=== PATIENT | female | born 1950 | race Caucasian/White ===

== ENCOUNTER → 2017-11-30 07:16 | Outpatient (CLI) | payer MEDICARE, OTHER, SELFPAY ==
[2017-11-30 08:22] LABS: Alanine Aminotransferase 39 IU/L (9-52); Albumin 4.2 g/dL (3.5-5.0); Albumin Globulin Ratio 1.6 (1.0-2.8); Alkaline Phosphatase 77 U/L (38-126); Aspartate Aminotransferase 31 IU/L (14-36); BUN Creatinine Ratio 13.8 (6-22); Bilirubin Total 0.7 mg/dL (0.2-1.3); Calcium 10.1 mg/dL (8.4-10.2); Cholesterol 170 mg/dL (140-199); Estimated Glomerular Filt Rate > 60.0 mL/min (>60); Globulin 2.7 g/dL (1.7-4.1); Glucose 102 mg/dL (80-110); HDL Cholesterol 61 mg/dL (40-60); HEMOLYSIS < 15 (0-50); LDL Cholesterol Calculated 83 mg/dL (<100); Potassium 4.8 mmol/L (3.4-5.1); Sodium 142 mmol/L (137-145); Total Protein 6.9 g/dL (6.3-8.2); Triglycerides 128 mg/dL (35-150)
== END ==
PROVIDERS: PCP Family Medicine; Visit Provider Family Medicine
DX: E78.5 Hyperlipidemia, unspecified (principal)
CPT/HCPCS: 36415; 80053; 80061

== ENCOUNTER → 2018-11-29 07:57 | Outpatient (CLI) | payer MEDICARE, OTHER, SELFPAY ==
[2018-11-29 08:38] LABS: Add Manual Diff / Slide Review NO; Basophils Absolute Auto 0 /uL (0-100); Eosinophils Absolute Auto 0 /uL (0-450); Hematocrit 47.1 % (36-46); Hemoglobin 15.4 g/dL (12.0-16.0); Lymphocytes Absolute Auto 1000 /uL (1100-4500); Lymphocytes Percent Auto 25.4 % (25-40); Mean Corpuscular HGB Conc 32.7 % (30-36); Mean Corpuscular Hemoglobin 29.9 PG (26-34); Mean Corpuscular Volume 91.5 fL (80-100); Monocytes Absolute Auto 300 /uL (0-900); Monocytes Percent Auto 6.6 % (3-14); Neutrophils Absolute Auto 2800 /uL (1500-7000); Platelet Count 203 X10^3/uL (150-400); Red Blood Cell Count 5.15 X10^6/uL (4.0-5.2); Red Cell Distribution Width 12.9 % (11.6-14.8); White Blood Cell Count 4.1 X10^3/uL (4.5-11.0)
[2018-11-29 08:53] LABS: Alanine Aminotransferase 35 IU/L (9-52); Albumin 4.4 g/dL (3.5-5.0); Albumin Globulin Ratio 1.6 (1.0-2.8); Alkaline Phosphatase 66 U/L (38-126); Aspartate Aminotransferase 29 IU/L (14-36); Bilirubin Total 0.5 mg/dL (0.2-1.3); Blood Urea Nitrogen 12 mg/dL (7-17); Calcium 9.8 mg/dL (8.4-10.2); Carbon Dioxide 32 mmol/L (22-32); Chloride 101 mmol/L (98-107); Cholesterol 172 mg/dL (140-199); Estimated Glomerular Filt Rate > 60.0 mL/min (>60); Globulin 2.7 g/dL (1.7-4.1); Glucose 102 mg/dL (80-110); HDL Cholesterol 72 mg/dL (40-60); HEMOLYSIS < 15 (0-50); LDL Cholesterol Calculated 85 mg/dL (<100); Potassium 4.5 mmol/L (3.4-5.1); Sodium 139 mmol/L (137-145); Total Protein 7.1 g/dL (6.3-8.2); Triglycerides 76 mg/dL (35-150)
[2018-11-29 09:38] LABS: Lithium 0.2 mmol/L (0.6-1.2)
[2018-11-29 10:12] LABS: TSH w/ Reflex to FT4 1.45 uIU/mL (0.47-4.68)
== END ==
PROVIDERS: Family Provider Nurse Practitioner Psychiatric/Mental Health; PCP Family Medicine; Visit Provider Family Medicine
DX: E78.5 Hyperlipidemia, unspecified (principal); Z79.899 Other long term (current) drug therapy
CPT/HCPCS: 36415; 80053; 80061; 80178; 84443; 85025

== ENCOUNTER 2019-04-25 13:00 | Outpatient (RCR) | payer MEDICARE, OTHER, SELFPAY ==
--- NOTE | 2019-03-02 16:00 | PT.OPPOC ---
Current Diagnoses Other specified disorders of muscle (03/02/19) Stress incontinence (female) (male) (03/02/19) Provider Visit Care Team Role Provider Type Addie Knowles DO Attending Provider Physician Primary Care Provider Specialty: [facility] Address: [address] [place] [address], [address], [address] Email: [email or web address] Plan Of Care PT-OP-T Assessment and Plan Start: 03/02/19 13:20 Freq: Status: Active Protocol: Document 03/02/19 10:30 AMB (Rec: 03/04/19 11:21 AMB [email or web address]) Physical Therapy Assessment Rehab Potential Rehabilitation Potential Good Evaluation Complexity Number of Personal Factors/Comorbidities 1-2 Number of Body Systems Impaired 1-2 Clinical Presentation at Evaluation Stable Impairments Impairments Functional Activities Strength Goals Two Impairment strength Short Term Goal (STG) Leia will increase her pelvic floor strength to 3/5 in all planes. STG Duration 4 weeks Mcfp Goal (LTG) Leia will perform a kegel while squatting without abdominal compensation. LTG Duration 8 weeks One Impairment continence Short Term Goal (STG) Leia will cough without leaking. STG Duration 4 weeks Mcfp Goal (LTG) Leia will cough while walking without leaking. LTG Duration 8 weeks Assessment Summary Assessment Leia returns to physical therapy with continued stress urinary incontinence. She was last seen in May 2017 and just noticed a return of her symptoms a few months ago. She denies any recent change in activity or recent illness , although admits she has not kept up with her pelvic floor exercises. She will benefit from pelvic floor PT to help her strengthen her pelvic floor with specific focus on ways to strengthen functionally so that she is able to stay continent in the shelter. Physical Therapy Plan Frequency and Duration Frequency of Treatment 1x/Week Duration of Treatment 8 weeks Plan of Care Start Date 03/02/19 Plan of Care End Date 04/27/19 Therapeutic Interventions Therapeutic Interventions Home Exercise Program Manual Therapy Neuromuscular Re-education Self-Care/Home Management Therapeutic Activities Therapeutic Exercises Modalities Biofeedback Electric Stimulation Next Visit Focus/Plan Next Note Type Treatment Note Next Visit Plan Begin with sEMG, but quickly move into more functional strengthening that pt can be consistent with. Plan of Care Dates Plan of Care Start Date 03/02/19 Plan of Care End Date 04/27/19 Please Sign and Return: I have reviewed this Plan of Care and certify that the skilled therapy services above are required to meet the patient?s needs. Physician Signature Date Printed Name and Credentials Clinical Instructor Signature Printed Name and Credentials
--- NOTE | 2019-03-02 16:00 | PT.OIE ---
Current Diagnoses Other specified disorders of muscle (03/02/19) Stress incontinence (female) (male) (03/02/19) Past Medical History (Last Updated 12/10/17 @ 20:13 by Addie Knowles DO) Birdsong use (Chronic) Cholelithiasis and cholecystitis without obstruction (Resolved) Genital herpes simplex (Chronic 08/15/13) Hyperlipidemia (Chronic 08/15/13) Gastroesophageal reflux disease (Chronic 01/30/15) Bipolar affective disorder (Chronic 01/30/15) Anemia (Chronic ~1958) Anxiety (Chronic ~1962) Atrophic vaginitis (Chronic) Bipolar 1 disorder (Chronic ~1962) Chlamydia (Chronic ~1974) Depression (Chronic ~1962) HSV (herpes simplex virus) infection (Chronic ~1975) Hayfever (Chronic ~1971) Helicobacter pylori (H. pylori) (Chronic) Hyperlipidemia (Chronic) Hypertension (Chronic ~1999) Osteoarthritis (Chronic ~2013) Stress incontinence (Chronic) Vision problem (Chronic) Abnormal Pap smear of cervix (Resolved) Cataract (Resolved ~2012) Chickenpox (Resolved ~1958) Measles (Resolved ~1955) Mumps (Resolved ~1956) PMS (premenstrual syndrome) (Resolved) Recurrent sinusitis (Resolved ~1988) Suicide attempt (Inactive 01/09/15) Past Surgical History (Last Updated 12/07/17 @ 12:21 by Meka Bal) History of blepharoplasty (Resolved ~2016) History of meniscal tear (Resolved ~1989) Anesthesia (Inactive) History of bilateral salpingo-oophorectomy (BSO) History of cataract removal with insertion of prosthetic lens History of elective History of elective History of lumpectomy Status post arthroscopy Status post breast biopsy Status post endometrial ablation Status post laparoscopic cholecystectomy (07/14/17) Provider Visit Care Team Role Provider Type Addie Knowles DO Attending Provider Physician Primary Care Provider Specialty: [facility] Address: [address] [place] [address], [address], [address] Email: [email or web address] Physical Therapy Initial Evaluation PT-OP-A Visit Information Start: 03/02/19 13:20 Freq: Status: Active Protocol: Document 03/02/19 10:30 AMB (Rec: 03/04/19 11:16 AMB [email or web address]) Out-Patient Physical Therapy Visit Information Visit Information Visit Type Initial Evaluation Visit Start Time 10:30 Visit Stop Time 11:14 Total Visit Minutes 44 Visit Number 1 PT-OP-B Current Condition Start: 03/02/19 13:20 Freq: Status: Active Protocol: Document 03/02/19 10:30 AMB (Rec: 03/04/19 11:16 AMB [email or web address]) Current Condition History of Current Condition Onset Date chronic Current Complaints urinary leaking with sneeze cough History of Current Condition Leia had one live with vaginal delivery and episiotomy. She denies leaking around that time, but started around 2004 around menopause. Sneezing, coughing , and walking make the leaking worse. Denies urgency. Prior Treatments and Tests Leia has been seen twice before for pelvic floor PT but admits she has not kept up with her exercises Treatment Goals Patient/Caregiver Goals Stop leaking Personal Factors Other Personal Factors That May Effect bipolar, prior knee Therapy/Recovery replacements. PT-OP-C Subjective Start: 03/02/19 13:20 Freq: Status: Active Protocol: Document 03/02/19 10:30 AMB (Rec: 03/04/19 11:16 AMB [email or web address]) Patient Questionnaires Pelvic Pain and Urgency/Frequency Patient Symptom Scale Pelvic Pain Score 4 PT-OP-I Pelvic Floor Start: 03/02/19 13:20 Freq: Status: Active Protocol: Document 03/02/19 10:30 AMB (Rec: 03/04/19 11:16 AMB [email or web address]) Pelvic Floor Assessment Urine Pelvic Floor Surgery No Leakage Size Medium Leakage Cause Cough Sneeze Voiding Frequency 2-3 hours Nocturia 1 Prolapse Cystocele Grade 1 SEMG (uV) Baseline 2 Quick Contraction 12 10 Second Contraction 8 Recruitment Pattern Fair Relaxation Fair Stability of Hold Fair SEMG Stability of Rest Good Contraction Ability Voluntary Contraction Weak Voluntary Relaxation Moderate Manual Muscle Testing Left 2 Manual Muscle Testing Right 2 Manual Muscle Testing Anterior 2 Manual Muscle Testing Posterior 3 Muscle Endurance (Seconds) 4 Number of Quick Contractions In 10 4 Seconds PT-OP-T Assessment and Plan Start: 03/02/19 13:20 Freq: Status: Active Protocol: Document 03/02/19 10:30 AMB (Rec: 03/04/19 11:21 AMB [email or web address]) Physical Therapy Assessment Rehab Potential Rehabilitation Potential Good Evaluation Complexity Number of Personal Factors/Comorbidities 1-2 Number of Body Systems Impaired 1-2 Clinical Presentation at Evaluation Stable Impairments Impairments Functional Activities Strength Goals Two Impairment strength Short Term Goal (STG) Leia will increase her pelvic floor strength to 3/5 in all planes. STG Duration 4 weeks Residential Goal (LTG) Leia will perform a kegel while squatting without abdominal compensation. LTG Duration 8 weeks One Impairment continence Short Term Goal (STG) Leia will cough without leaking. STG Duration 4 weeks [employer] Goal (LTG) Leia will cough while walking without leaking. LTG Duration 8 weeks Assessment Summary Assessment Leia returns to physical therapy with continued stress urinary incontinence. She was last seen in May 2017 and just noticed a return of her symptoms a few months ago. She denies any recent change in activity or recent illness , although admits she has not kept up with her pelvic floor exercises. She will benefit from pelvic floor PT to help her strengthen her pelvic floor with specific focus on ways to strengthen functionally so that she is able to stay continent in the senior care. Physical Therapy Plan Frequency and Duration Frequency of Treatment 1x/Week Duration of Treatment 8 weeks Plan of Care Start Date 03/02/19 Plan of Care End Date 04/27/19 Therapeutic Interventions Therapeutic Interventions Home Exercise Program Manual Therapy Neuromuscular Re-education Self-Care/Home Management Therapeutic Activities Therapeutic Exercises Modalities Biofeedback Electric Stimulation Next Visit Focus/Plan Next Note Type Treatment Note Next Visit Plan Begin with sEMG, but quickly move into more functional strengthening that pt can be consistent with.
--- NOTE | 2019-03-16 08:30 | PT.OTN ---
Current Diagnoses Other specified disorders of muscle (03/16/19) Stress incontinence (female) (male) (03/16/19) Physical Therapy Treatment Note PT-OP-A Visit Information Start: 03/02/19 13:20 Freq: Status: Active Protocol: Document 03/16/19 07:30 AMB (Rec: 03/19/19 06:59 AMB [email or web address]) Out-Patient Physical Therapy Visit Information Visit Information Visit Type Treatment Note Visit Start Time 07:30 Visit Stop Time 08:15 Total Visit Minutes 43 Visit Number 2 PT-OP-B Current Condition Start: 03/02/19 13:20 Freq: Status: Active Protocol: Document 03/02/19 10:30 AMB (Rec: 03/04/19 11:16 AMB [email or web address]) Current Condition History of Current Condition Onset Date chronic Current Complaints urinary leaking with sneeze cough History of Current Condition Leia had one live with vaginal delivery and episiotomy. She denies leaking around that time, but started around 2004 around menopause. Sneezing, coughing , and walking make the leaking worse. Denies urgency. Prior Treatments and Tests Leia has been seen twice before for pelvic floor PT but admits she has not kept up with her exercises Treatment Goals Patient/Caregiver Goals Stop leaking Personal Factors Other Personal Factors That May Effect bipolar, prior knee Therapy/Recovery replacements. PT-OP-C Subjective Start: 03/02/19 13:20 Freq: Status: Active Protocol: Document 03/16/19 07:30 AMB (Rec: 03/19/19 06:59 AMB [email or web address]) OP-PT Subjective Patient Comments Patient Comments Leia states she is very anxious today. It has been two weeks since her last appointment, and the first week went well, but the second week she was having lots of leaks because she felt she forgot how to use the muscles. PT-OP-I Pelvic Floor Start: 03/02/19 13:20 Freq: Status: Active Protocol: Document 03/02/19 10:30 AMB (Rec: 03/04/19 11:16 AMB [email or web address]) Pelvic Floor Assessment Urine Pelvic Floor Surgery No Leakage Size Medium Leakage Cause Cough,Sneeze Voiding Frequency 2-3 hours Nocturia 1 Prolapse Cystocele Grade 1 SEMG (uV) Baseline 2 Quick Contraction 12 10 Second Contraction 8 Recruitment Pattern Fair Relaxation Fair Stability of Hold Fair SEMG Stability of Rest Good Contraction Ability Voluntary Contraction Weak Voluntary Relaxation Moderate Manual Muscle Testing Left 2 Manual Muscle Testing Right 2 Manual Muscle Testing Anterior 2 Manual Muscle Testing Posterior 3 Muscle Endurance (Seconds) 4 Number of Quick Contractions In 10 4 Seconds PT-OP-Q Treatments Start: 03/02/19 13:20 Freq: Status: Active Protocol: Document 03/16/19 07:30 AMB (Rec: 03/19/19 06:59 AMB [email or web address]) Therapeutic Exercises Supine Exercises 1 Supine Exercise Name roll in Reps/Minutes 2x10 Neuro Re-Education Treatment Other Activities 1 Details sEMG Comments hooklying quick flicks and long holds, with work on breathing PT-OP-T Assessment and Plan Start: 03/02/19 13:20 Freq: Status: Active Protocol: Document 03/16/19 07:30 AMB (Rec: 03/19/19 06:59 AMB [email or web address]) Physical Therapy Assessment Assessment Summary Assessment Leia feels that she forgot how to do a Kegel, but did well with sEMG today. As pt was very anxious, did not progress exercises much, but reassured her she is doing them correctly. Physical Therapy Plan Next Visit Focus/Plan Next Note Type Treatment Note Next Visit Plan Begin with sEMG, but quickly move into more functional strengthening that pt can be consistent with.
--- NOTE | 2019-04-11 12:00 | PT.OTN ---
Current Diagnoses Other specified disorders of muscle (04/11/19) Stress incontinence (female) (male) (04/11/19) Physical Therapy Treatment Note PT-OP-A Visit Information Start: 03/02/19 13:20 Freq: Status: Active Protocol: Document 04/11/19 13:00 AMB (Rec: 04/11/19 13:46 AMB [id number]) Out-Patient Physical Therapy Visit Information Visit Information Visit Type Treatment Note Visit Start Time 13:00 Visit Stop Time 13:44 Total Visit Minutes 44 Visit Number 3 PT-OP-B Current Condition Start: 03/02/19 13:20 Freq: Status: Active Protocol: Document 03/02/19 10:30 AMB (Rec: 03/04/19 11:16 AMB [email or web address]) Current Condition History of Current Condition Onset Date chronic Current Complaints urinary leaking with sneeze cough History of Current Condition Leia had one live with vaginal delivery and episiotomy. She denies leaking around that time, but started around 2004 around menopause. Sneezing, coughing , and walking make the leaking worse. Denies urgency. Prior Treatments and Tests Leia has been seen twice before for pelvic floor PT but admits she has not kept up with her exercises Treatment Goals Patient/Caregiver Goals Stop leaking Personal Factors Other Personal Factors That May Effect bipolar, prior knee Therapy/Recovery replacements. PT-OP-C Subjective Start: 03/02/19 13:20 Freq: Status: Active Protocol: Document 04/11/19 13:00 AMB (Rec: 04/11/19 13:46 AMB [id number]) OP-PT Subjective Patient Comments Patient Comments Leia sneezed 5 times yesterday while walking, she went down to her mid thigh down her pants when this happened, she has not been good with her exercises as she keeps forgetting how to do them. PT-OP-I Pelvic Floor Start: 03/02/19 13:20 Freq: Status: Active Protocol: Document 03/02/19 10:30 AMB (Rec: 03/04/19 11:16 AMB [email or web address]) Pelvic Floor Assessment Urine Pelvic Floor Surgery No Leakage Size Medium Leakage Cause Cough,Sneeze Voiding Frequency 2-3 hours Nocturia 1 Prolapse Cystocele Grade 1 SEMG (uV) Baseline 2 Quick Contraction 12 10 Second Contraction 8 Recruitment Pattern Fair Relaxation Fair Stability of Hold Fair SEMG Stability of Rest Good Contraction Ability Voluntary Contraction Weak Voluntary Relaxation Moderate Manual Muscle Testing Left 2 Manual Muscle Testing Right 2 Manual Muscle Testing Anterior 2 Manual Muscle Testing Posterior 3 Muscle Endurance (Seconds) 4 Number of Quick Contractions In 10 4 Seconds PT-OP-Q Treatments Start: 03/02/19 13:20 Freq: Status: Active Protocol: Document 04/11/19 13:00 AMB (Rec: 04/12/19 07:56 AMB [email or web address]) Therapeutic Exercises Supine Exercises 1 Supine Exercise Name roll in Reps/Minutes 2x10 Neuro Re-Education Treatment Other Activities 1 Details sEMG Comments hooklying quick flicks and long holds, with work on breathing PT-OP-T Assessment and Plan Start: 03/02/19 13:20 Freq: Status: Active Protocol: Document 04/11/19 13:00 AMB (Rec: 04/12/19 07:56 AMB [email or web address]) Physical Therapy Assessment Assessment Summary Assessment Leia continues to need extensive cueing for correct pelvic floor contraction, but then can perform well. Will benefit from more consistent appointments so she can get in a good routine. Physical Therapy Plan Next Visit Focus/Plan Next Note Type Treatment Note Next Visit Plan Begin with sEMG, but quickly move into more functional strengthening that pt can be consistent with.
--- NOTE | 2019-04-18 16:01 | PT.OTN ---
Current Diagnoses Other specified disorders of muscle (04/18/19) Stress incontinence (female) (male) (04/18/19) Physical Therapy Treatment Note PT-OP-A Visit Information Start: 03/02/19 13:20 Freq: Status: Active Protocol: Document 04/18/19 12:59 AMB (Rec: 04/18/19 13:12 AMB [id number]) Out-Patient Physical Therapy Visit Information Visit Information Visit Type Treatment Note Visit Start Time 13:00 Visit Stop Time 13:44 Total Visit Minutes 44 Visit Number 4 PT-OP-B Current Condition Start: 03/02/19 13:20 Freq: Status: Active Protocol: Document 03/02/19 10:30 AMB (Rec: 03/04/19 11:16 AMB [email or web address]) Current Condition History of Current Condition Onset Date chronic Current Complaints urinary leaking with sneeze cough History of Current Condition Leia had one live with vaginal delivery and episiotomy. She denies leaking around that time, but started around 2004 around menopause. Sneezing, coughing , and walking make the leaking worse. Denies urgency. Prior Treatments and Tests Leia has been seen twice before for pelvic floor PT but admits she has not kept up with her exercises Treatment Goals Patient/Caregiver Goals Stop leaking Personal Factors Other Personal Factors That May Effect bipolar, prior knee Therapy/Recovery replacements. PT-OP-C Subjective Start: 03/02/19 13:20 Freq: Status: Active Protocol: Document 04/18/19 12:59 AMB (Rec: 04/18/19 13:45 AMB [id number]) OP-PT Subjective Patient Comments Patient Comments Pt is frustrated she is having difficulty doing the exercises. PT-OP-I Pelvic Floor Start: 03/02/19 13:20 Freq: Status: Active Protocol: Document 03/02/19 10:30 AMB (Rec: 03/04/19 11:16 AMB [email or web address]) Pelvic Floor Assessment Urine Pelvic Floor Surgery No Leakage Size Medium Leakage Cause Cough,Sneeze Voiding Frequency 2-3 hours Nocturia 1 Prolapse Cystocele Grade 1 SEMG (uV) Baseline 2 Quick Contraction 12 10 Second Contraction 8 Recruitment Pattern Fair Relaxation Fair Stability of Hold Fair SEMG Stability of Rest Good Contraction Ability Voluntary Contraction Weak Voluntary Relaxation Moderate Manual Muscle Testing Left 2 Manual Muscle Testing Right 2 Manual Muscle Testing Anterior 2 Manual Muscle Testing Posterior 3 Muscle Endurance (Seconds) 4 Number of Quick Contractions In 10 4 Seconds PT-OP-Q Treatments Start: 03/02/19 13:20 Freq: Status: Active Protocol: Document 04/18/19 15:59 AMB (Rec: 04/18/19 16:01 AMB [email or web address]) Therapeutic Exercises Sitting Exercises 1 Sitting Exercise Name roll in/roll out in seated Comments challenging Standing Exercises 1 Standing Exercise Name quick flicks in standing Comments better, difficulty wiht 10 sec holds Neuro Re-Education Treatment Other Activities 1 Details sEMG Comments hooklying quick flicks and long holds, with work on breathing PT-OP-T Assessment and Plan Start: 03/02/19 13:20 Freq: Status: Active Protocol: Document 04/18/19 12:59 AMB (Rec: 04/18/19 13:45 AMB [id number]) Physical Therapy Assessment Assessment Summary Assessment Mag needed extensive encouragement to continue on with exercises. Encouraged her in seated and standing exercises so that she can be more successful and not fall asleep doing her exercises. Physical Therapy Plan Next Visit Focus/Plan Next Note Type Treatment Note Next Visit Plan Begin with sEMG, but quickly move into more functional strengthening that pt can be consistent with.
--- NOTE | 2019-04-25 15:41 | PT.OTN ---
Current Diagnoses Other specified disorders of muscle (04/25/19) Stress incontinence (female) (male) (04/25/19) Physical Therapy Treatment Note PT-OP-A Visit Information Start: 03/02/19 13:20 Freq: Status: Active Protocol: Document 04/25/19 13:00 AMB (Rec: 04/25/19 13:45 AMB [id number]) Out-Patient Physical Therapy Visit Information Visit Information Visit Type Treatment Note Visit Start Time 13:00 Visit Stop Time 13:44 Total Visit Minutes 44 Visit Number 5 PT-OP-B Current Condition Start: 03/02/19 13:20 Freq: Status: Active Protocol: Document 03/02/19 10:30 AMB (Rec: 03/04/19 11:16 AMB [email or web address]) Current Condition History of Current Condition Onset Date chronic Current Complaints urinary leaking with sneeze cough History of Current Condition Leia had one live with vaginal delivery and episiotomy. She denies leaking around that time, but started around 2004 around menopause. Sneezing, coughing , and walking make the leaking worse. Denies urgency. Prior Treatments and Tests Leia has been seen twice before for pelvic floor PT but admits she has not kept up with her exercises Treatment Goals Patient/Caregiver Goals Stop leaking Personal Factors Other Personal Factors That May Effect bipolar, prior knee Therapy/Recovery replacements. PT-OP-C Subjective Start: 03/02/19 13:20 Freq: Status: Active Protocol: Document 04/25/19 13:00 AMB (Rec: 04/25/19 13:45 AMB [id number]) OP-PT Subjective Patient Comments Patient Comments Pt is frustrated in that she did not do her exercises for the past 4 days. She has not been leaking, but also has not been sneezing. PT-OP-I Pelvic Floor Start: 03/02/19 13:20 Freq: Status: Active Protocol: Document 03/02/19 10:30 AMB (Rec: 03/04/19 11:16 AMB [email or web address]) Pelvic Floor Assessment Urine Pelvic Floor Surgery No Leakage Size Medium Leakage Cause Cough,Sneeze Voiding Frequency 2-3 hours Nocturia 1 Prolapse Cystocele Grade 1 SEMG (uV) Baseline 2 Quick Contraction 12 10 Second Contraction 8 Recruitment Pattern Fair Relaxation Fair Stability of Hold Fair SEMG Stability of Rest Good Contraction Ability Voluntary Contraction Weak Voluntary Relaxation Moderate Manual Muscle Testing Left 2 Manual Muscle Testing Right 2 Manual Muscle Testing Anterior 2 Manual Muscle Testing Posterior 3 Muscle Endurance (Seconds) 4 Number of Quick Contractions In 10 4 Seconds PT-OP-Q Treatments Start: 03/02/19 13:20 Freq: Status: Active Protocol: Document 04/25/19 13:00 AMB (Rec: 04/25/19 15:34 AMB [email or web address]) Therapeutic Exercises Sitting Exercises 1 Sitting Exercise Name roll in/roll out in seated Comments challenging Standing Exercises 2 Standing Exercise Name sit to stand Comments with PF contract 1 Standing Exercise Name quick flicks in standing Comments better, difficulty wiht 10 sec holds PT-OP-T Assessment and Plan Start: 03/02/19 13:20 Freq: Status: Active Protocol: Document 04/25/19 13:00 AMB (Rec: 04/25/19 13:33 AMB [id number]) Physical Therapy Assessment Goals Two Impairment strength Short Term Goal (STG) Leia will increase her pelvic floor strength to 3/5 in all planes. STG Duration NOT MET Skilled Nursing Goal (LTG) Leia will perform a kegel while squatting without abdominal compensation. LTG Duration NOT MET One Impairment continence Short Term Goal (STG) Leia will cough without leaking. MET- but still leaks with sneezing Skilled Nursing Goal (LTG) Leia will cough while walking without leaking. LTG Duration NOT MET Assessment Summary Assessment Leia is having a hard time being kind to herself when it comes to her exercises. She did her exercises 3x in the last week, but is upset with herself for not doing them the other 4 days. She feels she is better able to do her exercises now, but is worried that if she sneezed she would still leak. Discussed follow up with MD to discuss alternate options: medication, pessary, surgery. . . Given Leia's history of having a hard time with being consistent with her exercises. She wanted to discharge today, even though she has not met her goals. She was given very specific instructions of when to do her exercises, and hopefully she will be able to be consistent with that. Physical Therapy Plan Discharge Physical Therapy Discharge Reasons Patient Request
== END 2019-04-25 14:11 | disposition home or self-care (01) ==
LOC: PHYS 13:00
PROVIDERS: PCP Family Medicine; Visit Provider Family Medicine
DX: M62.89 Other specified disorders of muscle (principal); N39.3 Stress incontinence (female) (male)
CPT/HCPCS: 97110; 97112; 97161

== ENCOUNTER → 2019-10-27 08:56 | Outpatient (CLI) | payer MEDICARE, OTHER, SELFPAY | PROVIDERS: PCP Family Medicine; Referring Provider Family Medicine; Visit Provider Family Medicine | DX: R19.7 Diarrhea, unspecified (principal) | CPT/HCPCS: 87177 ==

== ENCOUNTER → 2019-10-30 12:45 | Outpatient (CLI) | payer MEDICARE, OTHER, SELFPAY ==
[2019-10-30 13:49] LABS: Add Manual Diff / Slide Review NO; Basophils Absolute Auto 0 /uL (0-100); Basophils Percent Auto 0.1 % (0-2); Eosinophils Absolute Auto 0 /uL (0-450); Eosinophils Percent Auto 0.1 % (2-4); Hematocrit 43.3 % (36-46); Hemoglobin 14.4 g/dL (12.0-16.0); Lymphocytes Absolute Auto 1300 /uL (1100-4500); Lymphocytes Percent Auto 27.2 % (25-40); Mean Corpuscular HGB Conc 33.2 % (30-36); Mean Corpuscular Hemoglobin 31.1 PG (26-34); Mean Corpuscular Volume 93.8 fL (80-100); Monocytes Absolute Auto 300 /uL (0-900); Monocytes Percent Auto 6.7 % (3-14); Neutrophils Absolute Auto 3300 /uL (1500-7000); Neutrophils Percent Auto 65.9 % (50-75); Platelet Count 186 X10^3/uL (150-400); Red Blood Cell Count 4.62 X10^6/uL (4.0-5.2); Red Cell Distribution Width 12.7 % (11.6-14.8); White Blood Cell Count 4.9 X10^3/uL (4.5-11.0)
[2019-10-30 14:05] LABS: Alanine Aminotransferase 59 IU/L (<35); Albumin 4.1 g/dL (3.5-5.0); Albumin Globulin Ratio 1.6 (1.0-2.8); Alkaline Phosphatase 68 U/L (38-126); Aspartate Aminotransferase 59 IU/L (14-36); BUN Creatinine Ratio 16.2 (6-22); Bilirubin Total 0.6 mg/dL (0.2-1.3); Blood Urea Nitrogen 11 mg/dL (7-17); C-Reactive Protein Quant < 0.5 mg/dL (<1.0); Calcium 9.1 mg/dL (8.4-10.2); Carbon Dioxide 30 mmol/L (22-32); Chloride 100 mmol/L (98-107); Estimated Glomerular Filt Rate > 60.0 mL/min (>60); Globulin 2.5 g/dL (1.7-4.1); Glucose 199 mg/dL (80-110); HEMOLYSIS < 15 (0-50); Potassium 4.1 mmol/L (3.4-5.1); Sodium 137 mmol/L (137-145); Total Protein 6.6 g/dL (6.3-8.2)
== END ==
PROVIDERS: PCP Family Medicine; Referring Provider Family Medicine; Visit Provider Family Medicine
DX: K52.9 Noninfective gastroenteritis and colitis, unspecified (principal)
CPT/HCPCS: 80053; 85025; 86140

== ENCOUNTER → 2019-11-13 07:58 | Outpatient (CLI) | payer MEDICARE, OTHER, SELFPAY ==
[2019-11-13 08:35] LABS: Alanine Aminotransferase 31 IU/L (<35); Albumin 4.3 g/dL (3.5-5.0); Albumin Globulin Ratio 1.5 (1.0-2.8); Alkaline Phosphatase 69 U/L (38-126); Aspartate Aminotransferase 38 IU/L (14-36); Bilirubin Total 0.4 mg/dL (0.2-1.3); Blood Urea Nitrogen 6 mg/dL (7-17); Calcium 9.7 mg/dL (8.4-10.2); Carbon Dioxide 31 mmol/L (22-32); Chloride 103 mmol/L (98-107); Estimated Glomerular Filt Rate > 60.0 mL/min (>60); Globulin 2.9 g/dL (1.7-4.1); Glucose 102 mg/dL (80-110); HEMOLYSIS < 15 (0-50); Potassium 4.5 mmol/L (3.4-5.1); Sodium 138 mmol/L (137-145); Total Protein 7.2 g/dL (6.3-8.2)
[2019-11-13 08:50] LABS: Lithium 0.3 mmol/L (0.6-1.2)
[2019-11-14 07:17] LABS: Insulin Level Total 4.8 uIU/mL (2.6-24.9)
== END ==
PROVIDERS: PCP Family Medicine; Referring Provider Family Medicine; Visit Provider Family Medicine
DX: E78.5 Hyperlipidemia, unspecified (principal); R73.09 Other abnormal glucose; R79.89 Other specified abnormal findings of blood chemistry; Z79.899 Other long term (current) drug therapy
CPT/HCPCS: 36415; 80053; 80178; 83036; 83525; 84443

== ENCOUNTER → 2020-06-04 07:57 | Outpatient (CLI) | payer MEDICARE, OTHER, SELFPAY ==
[2020-06-04 09:08] LABS: Lithium 0.2 mmol/L (0.6-1.2)
[2020-06-04 09:10] LABS: Alanine Aminotransferase 54 IU/L (<35); Albumin 4.3 g/dL (3.5-5.0); Albumin Globulin Ratio 1.7 (1.0-2.8); Alkaline Phosphatase 93 U/L (38-126); Aspartate Aminotransferase 41 IU/L (14-36); BUN Creatinine Ratio 8.4 (6-22); Bilirubin Total 0.6 mg/dL (0.2-1.3); Blood Urea Nitrogen 7 mg/dL (7-17); Calcium 9.6 mg/dL (8.4-10.2); Carbon Dioxide 30 mmol/L (22-32); Chloride 103 mmol/L (98-107); Cholesterol 158 mg/dL (140-199); Estimated Glomerular Filt Rate > 60.0 mL/min (>60); Globulin 2.6 g/dL (1.7-4.1); Glucose 111 mg/dL (80-110); HDL Cholesterol 71 mg/dL (40-60); HEMOLYSIS < 15 (0-50); LDL Cholesterol Calculated 69 mg/dL (<100); Potassium 4.9 mmol/L (3.4-5.1); Sodium 138 mmol/L (137-145); Total Protein 6.9 g/dL (6.3-8.2); Triglycerides 91 mg/dL (35-150)
== END ==
PROVIDERS: PCP Family Medicine; Referring Provider Family Medicine; Visit Provider Family Medicine
DX: E78.5 Hyperlipidemia, unspecified (principal); R73.9 Hyperglycemia, unspecified; R79.89 Other specified abnormal findings of blood chemistry; Z79.899 Other long term (current) drug therapy
CPT/HCPCS: 36415; 80053; 80061; 80178

== ENCOUNTER 2020-11-12 10:28 | Emergency (ER) | payer MEDICARE, OTHER, SELFPAY ==
[2020-11-12 10:35] VITALS: BP 167/74; PULSE 48; PULSE 49; RESP 13; TEMP 36.6; O2SAT 99; BMI 25.0
--- NOTE | 2020-11-12 10:49 | ED.NEUROSD ---
HPI - Neuro Symptoms/Deficit General Chief Complaint: Neuro Symptoms/Deficit Stated Complaint: weakness, fell post-colonoscopy 11/06/20 Time Seen by Provider: 11/12/20 10:39 Source: patient Mode of arrival: Ambulatory Limitations: no limitations History of Present Illness HPI Narrative: Patient is a 70-year-old female who arrives here to the emergency department by private vehicle for evaluation. She states that just prior to arrival she was at the local pool for a water aerobics class when she stated that she was advised to come by ?everyone in the class she states that she has a little unsure as to why she is here. She thinks that is because 1 week ago prior to a colonoscopy she fell at home and sustained some bruising to the back her legs. She stated that the individuals in her class thought that she had a come to have those evaluated. She states that she has an underlying balance issues and was somewhat more unsteady today and because of the bruising is why she was here. She later stated that she felt bad about being here him when I asked her why she stated ?because I have a hangover ?she stated that last evening she did drink alcohol. Her last drink was approximately 1900 hours. She states that she woke up this morning feeling very hung over which made her underlying balance issues worse. She states that when she was at the pool she was very unsteady on her feet and because of the bruising which was why everyone thought that she had a come in to be evaluated. On Anticoagulants: No Related Data Home Medications Medication Instructions Recorded Confirmed MULTIVITAMIN (Multiple Vitamins 1 tab PO Q DAY #0 03/03/12 07/28/20 Daily) [calcium/magnesium] 500 mg OR QDAY #0 05/18/17 07/28/20 lamotrigine 200 mg PO QDAY #0 07/14/17 07/28/20 memantine 10 mg tablet 10 mg PO BID 05/28/20 07/28/20 fluoxetine 10 mg capsule 30 mg PO DAILY cap 07/28/20 07/28/20 lithium carbonate 300 mg 300 mg PO DAILY 07/28/20 07/28/20 tablet,extended release olanzapine 10 mg tablet 10 mg PO DAILY 07/28/20 07/28/20 propranolol 10 mg tablet 10 mg PO TID 07/28/20 07/28/20 Previous Rx's Medication Instructions Recorded atorvastatin 10 mg tablet See Rx Instructions .ROUTE 07/27/20 .COMPLEX #90 tab Allergies Allergy/AdvReac Type Severity Reaction Status Date / Time morphine [MORPHINE] Allergy Severe Itch Verified 11/12/20 10:42 venlafaxine [VENLAFAXINE] Allergy Severe Upset GI Verified 11/12/20 10:42 [place] Allergy Unknown Rash Uncoded 07/28/20 09:31 Review of Systems Constitutional Constitutional: Reports fatigue, Denies fever(s) and Denies headache(s) Eyes Eyes: Denies change in vision ENT Ears, Nose, Mouth, and Throat: Denies dizziness, Denies headache(s) and Reports disequilibrium Cardiovascular Cardiovascular: Denies chest pain, Denies syncope and Denies dyspnea Respiratory Respiratory: Denies cough and Denies dyspnea Gastrointestinal Gastrointestinal: Denies abdominal pain, Denies nausea and Denies vomiting Genitourinary Genitourinary: Denies dysuria Genitourinary: Denies dysuria Musculoskeletal Musculoskeletal: Denies myalgias Integumentary/Breasts Comments: Lower extremity bruising Neurologic Neurologic: Denies dizziness, Denies syncope, Denies headache(s) and Reports disequilibrium Psychiatric Psychiatric: Reports depression (But this is not new) Comments: Bipolar disorder Endocrine Endocrine: Reports fatigue Hematologic/Lymphatic On Anticoagulants: No Allergic/Immunologic Allergic/Immunologic: Denies urticaria Patient History Medical History Abnormal Pap smear of cervix 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 pylori) HSV (herpes simplex virus) infection (~1975) Hyperlipidemia (08/15/13) Hyperlipidemia Hypertension (~1999) [place] use Measles (~1955) Mumps (~1956) Osteoarthritis (~2013) PMS (premenstrual syndrome) Recurrent sinusitis (~1988) Stress incontinence Suicide attempt (01/09/15) Vision problem Surgical History (Updated 12/07/17 @ 12:21 by Meka Bal) Anesthesia History of bilateral salpingo-oophorectomy (BSO) History of blepharoplasty (~2016) History of cataract removal with insertion of prosthetic lens History of elective History of elective History of lumpectomy History of meniscal tear (~1989) Status post arthroscopy Status post breast biopsy Status post endometrial ablation Status post laparoscopic cholecystectomy (07/14/17) Family History (Updated 09/07/17 @ 00:00 by Addie Knowles DO) Father Hypertension Hyperlipidemia Myocardial infarct Heart disease Mother High cholesterol Social History Smoking Status: Former smoker Smoking Status: Former smoker Substance Use Type: does not use Exam Initial Vital Signs Initial Vital Signs: Vital Signs Temperature 97.8 F 11/12/20 10:35 Pulse Rate 48 L 11/12/20 10:35 Respiratory Rate 13 11/12/20 10:35 Blood Pressure 167/74 H 11/12/20 10:35 Pulse Oximetry 99 11/12/20 10:35 Const General: cooperative, comfortable, well developed and well groomed Limitations: mental status not altered HENMT Head: normal to inspection and normocephalic Eyes General: appearance normal, both eyes and all related structures Pupils: PERRL EOM: EOM intact bilaterally Resp Effort & Inspection: normal respiratory effort Auscultation: clear to auscultation bilaterally Cardio Rate: bradycardic Rhythm: regular rhythm GI Inspection: non-distended Palpation: soft and No firm Skin Lesions: no lesions Neuro General: patient alert, patient awake and patient oriented x3 Cognition: normal cognition Speech: speech normal Extrem General: normal to inspection, capillary refill normal and No edema Psych Appearance: grossly normal and well kempt Scores GCS [place] coma scale eye opening: Spontaneous [place] coma scale verbal response: Orientated [place] coma scale motor response: Obey commands Britton coma scale total score: 15 NIH Stroke Scale Level of Conciousness: Alert, keenly responsive Ask month/age: Answers both questions correctly. Open/close eyes, close hand: Performs both tasks correctly Best gaze horizontal: Normal Visual malik: No visual loss Facial palsy: Normal symetrical movement Left arm drift: No drift for full 10 sec Right arm drift: No drift for full 10 sec Left leg drift: No drift for full 5 sec Right leg drift: No drift for full 5 sec Limb ataxia: Absent Sensory on face/arms/legs: Normal, no sensory loss Best language: No aphasia, normal Dysarthria: Normal Extinction or inattention: No abnormality Total NIH Stroke scale score: 0 Course Vital Signs Vital signs: Vital Signs - 8 hr 11/12/20 10:35 11/12/20 11:00 11/12/20 11:30 Temperature 97.8 F Pulse Rate 49 L 44 L 47 L Respiratory Rate 13 17 21 Blood Pressure 167/74 H Pulse Oximetry 99 100 99 [facility] - Neuro Symptoms/Deficit Lab Data Attestation: I reviewed the patient's lab results. [facility] Narrative Medical decision making narrative: Patient is alert oriented x3, GCS of 15, NIH score of 0, in my opinion has the capacity to make decisions. During my initial evaluation patient stated that she felt very bad. When I asked her why she felt this way she stated that it was because all of the issues this morning related to her being hung over. She stated that she did drink last evening and this morning her baseline unsteadiness was made a little worse because of the way that she was feeling. She has no focal neuro deficits. She stated that she did not want any IVs. She did tolerate oral intake. She ambulated around the emergency department without any problems. Patient states she would like to go home. I do feel that we can hold on further workup. She was given return precautions and follow-up instructions. She expressed understanding and agreement. Discharge Plan Departure Patient Disposition: Home Clinical Impression: Hangover Instructions: Alcohol Use Disorder Activity Restrictions/Additional Instructions: I recommend that you contact your primary provider for a follow-up. Continue all of your medications as directed. Return to the emergency department for any new or worsening symptoms Prescriptions: No Action MULTIVITAMIN (Multiple Vitamins Daily) 1 tab PO Q DAY Qty: 0 RF: 0 [calcium/magnesium] 500 mg OR QDAY Qty: 0 RF: 0 lamotrigine 200 MG tablet 200 mg PO QDAY Qty: 0 RF: 0 atorvastatin 10 mg tablet See Rx Instructions .ROUTE .COMPLEX Qty: 90 RF: 0 memantine 10 mg tablet 10 mg PO BID RF: 0 fluoxetine 10 mg capsule 30 mg PO DAILY RF: 0 olanzapine 10 mg tablet 10 mg PO DAILY RF: 0 lithium carbonate 300 mg tablet extended release 300 mg PO DAILY RF: 0 propranolol 10 mg tablet 10 mg PO TID RF: 0 Referrals: Addie Knowles DO [Primary Care Provider] -
[2020-11-12 11:00] VITALS: PULSE 44; RESP 17; O2SAT 100
[2020-11-12 11:30] VITALS: PULSE 47; RESP 21; O2SAT 99
== END 2020-11-12 12:02 | disposition home or self-care (01) ==
PROVIDERS: Emergency Provider Emergency Medicine; PCP Family Medicine
DX: F10.129 Alcohol abuse with intoxication, unspecified (principal)
CPT/HCPCS: 99281; 99284

== ENCOUNTER → 2020-11-22 08:50 | Outpatient (CLI) | payer MEDICARE, OTHER, SELFPAY ==
[2020-11-22 11:49] LABS: Adenovirus F 40/41 Not Detected (Not Detect); Astrovirus Not Detected (Not Detect); Campylobacter Not Detected (Not Detect); Clostridium difficile toxin AB Not Detected (Not Detect); Cryptosporidium Not Detected (Not Detect); Cyclospora cayetanensis Not Detected (Not Detect); Entamoeba histolytica Not Detected (Not Detect); Enteroaggregative E.coli Not Detected (Not Detect); Enteropathogenic E.coli Not Detected (Not Detect); Enterotoxigenic E.coli It/st Not Detected (Not Detect); Giardia lamblia Not Detected (Not Detect); Norovirus GI/GII Not Detected (Not Detect); Plesiomonsa shigelloides Not Detected (Not Detect); Rotavirus A Not Detected (Not Detect); Salmonella Not Detected (Not Detect); Sapovirus Not Detected (Not Detect); Shiga-like toxin-prod E.coli Not Detected (Not Detect); Shigella/Enteroinvasive E.coli Not Detected (Not Detect); Vibrio Not Detected (Not Detect); Vibrio cholerae Not Detected (Not Detect); Yersinia enterocolitica Not Detected (Not Detect)
== END ==
PROVIDERS: PCP Family Medicine; Referring Provider Physician Assistant; Visit Provider Physician Assistant
DX: R19.7 Diarrhea, unspecified (principal)
CPT/HCPCS: 87507

== ENCOUNTER → 2021-01-15 14:31 | Outpatient (CLI) | payer MEDICARE, OTHER, SELFPAY ==
--- NOTE | 2021-01-15 14:38 | DIET.PN ---
Dietary Progress Note Assessment: 70y F here for help with resolving symptoms of diarrhea which began August 2019 during the beginning of global pandemic. She was unable to do her pool exercises and diarrhea began. Pt recently started Probiotic with 10 types of bacteria and went back to the pool 3x/w and has noticed her stools are regulating. Pt does not know which activity helped or if it was both. Pt would wake in morning and Takes Immodium in morning and two metamucil with every meal since meeting c GI in September and diarrhea seems to be resolving. Pts food and BM record shows for past 1mo pt has been having one well formed (type 4) BM daily. Usual Day: B: 1-2 HB eggs or omelet c coffee L: lentil daal or danish or soup c broccoli and Pt often would graze instead of eat dinner, usually peanuts and popcorn. has diarrhea with cheese and wheat- would like to bring in goat cheese or [place] and would like to be able to try an IPA or murillo every once in a while. RD Impression: Pt had lived 69y without IBS type symptoms and her morning diarrhea (premeal) began in late Aug 2019 during the beginning of the global pandemic when she started worrying more and did not have her usual stress reduction outlet of going to the pool to swim and socialize. At that time pt removed dairy and gluten from her diet without resolving symptoms. Pt is not bothered by typical IBS trigger foods such as garlic, onion, stone fruit, nuts/seeds. Pt stool panel in November came back negative, saw GI doc who started her on Immodium daily c metamucil at each meal. Pt has had complete resolve of sx x1mo but has kept dairy and gluten removed from diet. Pt requests dairy and gluten be added back to her diet. Nutrition Diagnosis: Diarrhea r/t stress secondary to global pandemic aeb pt diarrhea started at beginning of global pandemic when her worry increased and her daily stress management routine (swimming) went away. Interventions: 1. Discussed typical manifestation of IBS/IBD as well as the gut brain connection (david stress and diarrhea). 2. Collaborated c pt on protocol to test preferred dairy and gluten products in increasing amounts and types. Wrote protocol on paper for pt to follow secondary to cognitive issues. Pt will try 1 inch cube cheese with normal dinner meal and wait a day or three to see if sx manifest. If not, pt will increase dairy amount or variety to test. Pt will drink 1 shot glass beer increasing up to a pint as tolerated. Pt realizes she may remain intolerant to dairy and gluten, but wants to test them now that sx are under control. Monitoring/Evaluations: pt will call to schedule f/u or with questions/concerns
== END ==
PROVIDERS: PCP Family Medicine; Referring Provider Registered Nurse Diabetes Educator; Visit Provider Registered Nurse Diabetes Educator
DX: R19.7 Diarrhea, unspecified (principal); Z71.3 Dietary counseling and surveillance
CPT/HCPCS: 97802

== ENCOUNTER → 2021-06-01 08:25 | Outpatient (CLI) | payer MEDICARE, OTHER, SELFPAY ==
[2021-06-01 09:18] LABS: Add Manual Diff / Slide Review NO; Basophils Absolute Auto 0 /uL (0-100); Basophils Percent Auto 0.1 % (0-2); Eosinophils Absolute Auto 0 /uL (0-450); Eosinophils Percent Auto 0.2 % (2-4); Hematocrit 41.8 % (36-46); Lymphocytes Absolute Auto 800 /uL (1100-4500); Lymphocytes Percent Auto 18.5 % (25-40); Mean Corpuscular HGB Conc 33.5 % (30-36); Mean Corpuscular Hemoglobin 31.3 PG (26-34); Mean Corpuscular Volume 93.2 fL (80-100); Monocytes Absolute Auto 300 /uL (0-900); Monocytes Percent Auto 7.6 % (3-14); Neutrophils Absolute Auto 3400 /uL (1500-7000); Neutrophils Percent Auto 73.6 % (50-75); Platelet Count 199 X10^3/uL (150-400); Red Blood Cell Count 4.48 X10^6/uL (4.0-5.2); Red Cell Distribution Width 13.3 % (11.6-14.8); White Blood Cell Count 4.6 X10^3/uL (4.5-11.0)
[2021-06-01 09:45] LABS: Lithium 0.3 mmol/L (0.6-1.2)
[2021-06-01 09:46] LABS: Alanine Aminotransferase 29 IU/L (<35); Albumin Globulin Ratio 1.7 (1.0-2.8); Alkaline Phosphatase 108 U/L (38-126); Aspartate Aminotransferase 32 IU/L (14-36); BUN Creatinine Ratio 14.7 (6-22); Bilirubin Total 0.8 mg/dL (0.2-1.3); Blood Urea Nitrogen 11 mg/dL (7-17); Calcium 9.6 mg/dL (8.4-10.2); Carbon Dioxide 34 mmol/L (22-32); Chloride 102 mmol/L (98-107); Cholesterol 149 mg/dL (140-199); Estimated Glomerular Filt Rate > 60.0 mL/min (>60); Globulin 2.4 g/dL (1.7-4.1); Glucose 101 mg/dL (80-110); HDL Cholesterol 64 mg/dL (40-60); HEMOLYSIS < 15 (0-50); LDL Cholesterol Calculated 68 mg/dL (<100); Sodium 138 mmol/L (137-145); Total Protein 6.4 g/dL (6.3-8.2); Triglycerides 84 mg/dL (35-150)
== END ==
PROVIDERS: PCP Family Medicine; Referring Provider Nurse Practitioner Psychiatric/Mental Health; Visit Provider Nurse Practitioner Psychiatric/Mental Health
DX: F20.9 Schizophrenia, unspecified (principal); E78.5 Hyperlipidemia, unspecified; R73.9 Hyperglycemia, unspecified; Z79.899 Other long term (current) drug therapy
CPT/HCPCS: 36415; 80053; 80061; 80178; 85025

== ENCOUNTER → 2022-01-04 11:33 | Outpatient (CLI) | payer MEDICARE, OTHER, SELFPAY ==
[2022-01-04 14:21] LABS: Hep C Virus Ab w/Reflex Quant NEGATIVE s/c (NEGATIVE)
== END ==
PROVIDERS: PCP Nurse Practitioner; Referring Provider Nurse Practitioner; Visit Provider Nurse Practitioner
DX: Z11.59 Encounter for screening for other viral diseases (principal)
CPT/HCPCS: 36415; 86803

== ENCOUNTER → 2022-01-20 13:56 | Outpatient (CLI) | payer MEDICARE, OTHER, SELFPAY ==
[2022-01-21 12:29] LABS: Fecal Immunochemical Test Negative (Negative)
== END ==
PROVIDERS: PCP Nurse Practitioner; Referring Provider Nurse Practitioner; Visit Provider Nurse Practitioner
DX: Z12.11 Encounter for screening for malignant neoplasm of colon (principal)
CPT/HCPCS: 82274

== ENCOUNTER → 2022-06-21 14:38 | Outpatient (CLI) | payer MEDICARE, OTHER, SELFPAY ==
--- NOTE | 2022-06-21 14:39 | DI.RAD.S_ITS ---
PROCEDURE: XR DEXA AXIAL SKELETON INDICATIONS: Post Menopausal Osteoporosis COMPARISON: None. FINDINGS: This blank DEXA report has been sent in error by the PACS system. The correct and complete report will be forthcoming in 1-2 days. Thank you for your patience and understanding. Dictated by: Tiara Remy MD, PhD on 06/22/2022 at 13:20 Approved by: Tiara Remy MD, PhD on 06/22/2022 at 13:20
== END ==
PROVIDERS: PCP Nurse Practitioner; Referring Provider Nurse Practitioner; Visit Provider Nurse Practitioner
DX: M85.851 Other specified disorders of bone density and structure, right thigh; Z13.820 Encounter for screening for osteoporosis; Z78.0 Asymptomatic menopausal state
CPT/HCPCS: 77080

== ENCOUNTER → 2022-06-22 07:10 | Outpatient (CLI) | payer MEDICARE, OTHER, SELFPAY ==
[2022-06-22 08:28] LABS: Alanine Aminotransferase 34 IU/L (<35); Albumin 4.1 g/dL (3.5-5.0); Albumin Globulin Ratio 1.6 (1.0-2.8); Alkaline Phosphatase 99 U/L (38-126); Aspartate Aminotransferase 36 IU/L (14-36); BUN Creatinine Ratio 8.7 (6-22); Bilirubin Total 0.7 mg/dL (0.2-1.3); Blood Urea Nitrogen 6 mg/dL (7-17); Calcium 9.1 mg/dL (8.4-10.2); Carbon Dioxide 32 mmol/L (22-32); Chloride 100 mmol/L (98-107); Cholesterol 162 mg/dL (140-199); Estimated Glomerular Filt Rate > 60 mL/min (>60); Globulin 2.6 g/dL (1.7-4.1); Glucose 86 mg/dL (80-110); HDL Cholesterol 78 mg/dL (40-60); HEMOLYSIS < 15 (0-50); LDL Cholesterol Calculated 67 mg/dL (<100); Lithium 0.2 mmol/L (0.6-1.2); Potassium 4.2 mmol/L (3.4-5.1); Sodium 138 mmol/L (137-145); Total Protein 6.7 g/dL (6.3-8.2); Triglycerides 83 mg/dL (35-150)
[2022-06-22 08:45] LABS: Free T3, Triiodothyronine Free 3.41 pg/mL (2.77-5.27)
[2022-06-22 08:58] LABS: Thyroid Stimulating Hormone 1.69 uIU/mL (0.47-4.68)
== END ==
PROVIDERS: PCP Nurse Practitioner; Referring Provider Nurse Practitioner; Visit Provider Nurse Practitioner
DX: E78.2 Mixed hyperlipidemia (principal); F31.70 Bipolar disorder, currently in remission, most recent episode unspecified; R73.9 Hyperglycemia, unspecified; Z79.899 Other long term (current) drug therapy
CPT/HCPCS: 36415; 80053; 80061; 80178; 84439; 84443; 84481

== ENCOUNTER → 2022-07-28 13:19 | Outpatient (CLI) | payer MEDICARE, OTHER, SELFPAY ==
--- NOTE | 2022-07-28 | DI.MG.S_ITS ---
BILATERAL DIGITAL SCREENING MAMMOGRAM 3D/2D WITH CAD: 07/28/2022 CLINICAL: Routine screening. Comparison is made to exams dated: 07/14/2021 mammogram, 06/16/2021 mammogram, and 03/27/2019 mammogram - outside location. Both breasts are heterogeneously dense, which may obscure small masses (category c / 51-75% glandular tissue). Current study was also evaluated with a Computer Aided Detection (CAD) system. No significant masses, calcifications, or other findings are seen in either breast. There has been no significant interval change. IMPRESSION: NEGATIVE There is no mammographic evidence of malignancy. A 1 year screening mammogram is recommended. Based on the Tyrer Cuzick model (a risk assessment model) the patient's lifetime risk is 9.0% and her 10 year risk is 7.4%. According to the ACR, ACS, and NCCN guidelines, an annual breast MRI exam along with mammogram is recommended if the patient's lifetime risk is 20% or greater. This exam was interpreted at Station ID: [id number]. NOTE: For mammograms, a report in lay terms will be sent to the patient. Approximately 15% of breast malignancies will not be visualized mammographically. In the management of a palpable breast mass, a negative mammogram must not discourage biopsy of a clinically suspicious lesion. Electronically Signed By: Darlene [email or web address]/dwayne:07/28/2022 16:01:36 letter sent: Normal Exam ACR BI-RADS Category 1: Negative [id number]
== END ==
PROVIDERS: PCP Nurse Practitioner; Referring Provider Nurse Practitioner; Visit Provider Nurse Practitioner
DX: Z12.31 Encounter for screening mammogram for malignant neoplasm of breast (principal)
CPT/HCPCS: 77063; 77067

== ENCOUNTER 2022-09-08 11:15 | Outpatient (RCR) | payer MEDICARE, OTHER, SELFPAY ==
--- NOTE | 2022-07-14 18:13 | PT.OPPOC ---
Physical, Occupational & Speech Therapy At [facility] Current Diagnoses Pelvic muscle wasting (07/14/22) Unspecified urinary incontinence (07/14/22) Visit Care Team Role Provider Type LEROY Alarcon Attending Provider Advanced Dietitian Consultant Primary Care Provider Referring Provider Specialty: Family Practice Address: [address] [place] [address], [facility] Email: [email or web address] Plan Of Care PT-OP-T Assessment and Plan Start: 07/14/22 10:43 Freq: Status: Active Protocol: Document 07/14/22 11:15 [facility] (Rec: 07/20/22 17:46 [facility] [id number]) Physical Therapy Assessment Rehab Potential Rehabilitation Potential Good Evaluation Complexity Number of Personal Factors/Comorbidities 0 Number of Body Systems Impaired 1-2 Clinical Presentation at Evaluation Stable Impairments Impairments Soft Tissue Mobility,Strength, Tone Other Impairments urinary incontinence Goals 3 Impairment Decreased pelvic floor endurance Short Term Goal (STG) Nohemi is able to sustain a pelvic floor contraction in supine x 10 seconds STG Duration 5 weeks Prison Goal (LTG) Nohemi is able to sustain a pelvic floor contraction in standing x 5 seconds LTG Duration 12 weeks 2 Impairment Decreased pelvic floor strength Prison Goal (LTG) Nohemi is able to increase her strength by 1 muscle grade for improved bladder support LTG Duration 12 weeks 1 Impairment urinary urge and stress incontinence Air Bag Curer Goal (LTG) Nohemi reports a overall reduction in both urge and stress incontinence symptoms LTG Duration 12 weeks Assessment Summary Assessment Nohemi is a 72 year old female who presents to Physical Therapy with chief complaints of urinary urge and stress incontinence. She notes she has good days and bad days and she is not sure what is triggering her bladder when she experiences urgency and or leakage. With examination today Nohemi is able to facilitate all parts of the levator ani, however there is weakness and poor endurance holds. Treatment today included EMG biofeedback and endurance was assessed. Nohemi fatigues after a few repetitions. She was educated on a home program for pelvic floor endurance contractions as well as educated in the urge deference technique. Bladder irritants may any be a contributing factor for her. Nohemi is a good candidate for PT. Physical Therapy Plan Frequency and Duration Frequency of Treatment 2x/Week Duration of treatment (weeks) 12 Plan of Care Start Date 07/14/22 Plan of Care End Date 10/06/22 Therapeutic Interventions Therapeutic Interventions Home Exercise Program,Manual Therapy,Neuromuscular Re- education,Patient/Caregiver Education,Self-Care/Home Management,Therapeutic Exercises Modalities Biofeedback Next Visit Focus/Plan Next Note Type Treatment Note Next Visit Plan Work with EMG biofeedback on endurance training and pelvic floor strengthening Plan of Care Dates Plan of Care Start Date 07/14/22 Plan of Care End Date 10/06/22 Electronically Signed by: Hayley Sprague, PT 07/20/22 [id number] If you are in agreement with this Plan of Care, please return a signed and dated copy. I have reviewed this Plan of Care and certify that the skilled therapy services above are required to meet the patient?s needs. Physician Signature Date Printed Name and Credentials Clinical Instructor Signature Printed Name and Credentials
--- NOTE | 2022-07-14 18:13 | PT.OIE ---
Current Diagnoses Pelvic muscle wasting (07/14/22) Unspecified urinary incontinence (07/14/22) Past Medical History (Last Updated 05/04/22 @ 18:18 by LEROY Alarcon) Abnormal Pap smear of cervix Alcohol use Amnestic MCI (mild cognitive impairment with memory loss) (~2016) Anemia (~1958) Anxiety (~1962) Atrophic vaginitis Cataract (~2012) Chickenpox (~1958) Chlamydia (~1974) Cholelithiasis and cholecystitis without obstruction Depression (~1962) Elevated LFTs Gastroesophageal reflux disease (01/30/15) Genital herpes simplex (08/15/13) Hayfever (~1971) Helicobacter pylori (H. pylori) HSV (herpes simplex virus) infection (~1975) Hyperlipidemia (08/15/13) Hyperlipidemia Hypertension (~1999) [place] use Measles (~1955) Mumps (~1956) Osteoarthritis (~2013) PMS (premenstrual syndrome) Recurrent sinusitis (~1988) Stress incontinence Suicide attempt (01/09/15) Vision problem Past Surgical History (Last Reviewed 05/04/22 @ 18:17 by LEROY Alarcon) Anesthesia History of bilateral salpingo-oophorectomy (BSO) History of blepharoplasty (~2016) History of cataract removal with insertion of prosthetic lens History of elective History of elective History of lumpectomy History of meniscal tear (~1989) Status post arthroscopy Status post breast biopsy Status post endometrial ablation Status post laparoscopic cholecystectomy (07/14/17) Visit Care Team Role Provider Type LEROY Alarcon Attending Provider Advanced Nuclear Medicine Technologist Primary Care Provider Referring Provider Specialty: Family Practice Address: [address] [place] [address], [facility] Email: [email or web address] Physical Therapy Initial Evaluation PT-OP-A Visit Information Start: 07/14/22 10:43 Freq: Status: Active Protocol: Document 07/14/22 11:20 [facility] (Rec: 07/14/22 11:50 [facility] [id number]) Out-Patient Physical Therapy Visit Information Visit Information Visit Type Initial Evaluation Visit Start Time 11:20 Visit Stop Time 12:00 Total Visit Minutes 40 Visit Number 1 Evaluation Information Evaluation Date 07/14/22 PT-OP-B Current Condition Start: 07/14/22 10:43 Freq: Status: Active Protocol: Document 07/14/22 11:15 [facility] (Rec: 07/14/22 11:50 [facility] [id number]) Current Condition History of Current Condition Onset Date worsening over time Current Complaints urinary stress and urge incontinence History of Current Condition pt reports urge as well as stress incontinence, some days are better than others. Drinking lots of water and has regular bowel movements. She has one cup of coffee maybe 2 and 2 martinins at night. She gets up to void at 2:30 am every morning and it doesn't disrupt her sleep. Urge incontinence happens within 5 minutes of getting to the bathroom. She is usually walking to the bathroom when she gets the urge to void. She will lose urine with sneezing hx of a ovarectomy in 1984. 84 vaginal delivery. She does water aerobics PT-OP-I Pelvic Floor Start: 07/14/22 10:43 Freq: Status: Active Protocol: Document 07/14/22 11:15 [facility] (Rec: 07/20/22 17:46 [facility] [id number]) Pelvic Floor Assessment Urine Pelvic Floor Surgery No Urinary Symptoms Urge Sensation Leakage Size Medium Leakage Cause Urge Voiding Frequency 1 Pelvic Clock Pelvic Clock 12-3 Atrophy Pelvic Clock 3-6 Atrophy Pelvic Clock 6-9 Atrophy Pelvic Clock 9-12 Atrophy Contraction Ability Voluntary Contraction Weak Voluntary Relaxation Weak Manual Muscle Testing Left 3 Manual Muscle Testing Right 3 Manual Muscle Testing Anterior 3 Manual Muscle Testing Posterior 3 Muscle Endurance (Seconds) 3 PT-OP-M Strength Start: 07/14/22 10:43 Freq: Status: Active Protocol: Document 07/14/22 11:15 [facility] (Rec: 07/20/22 18:07 [facility] [id number]) Trunk Strength Trunk Manual Muscle Testing Core Stabilization decreased core stabilization and ability to recruit the transverse abdominal muscle PT-OP-Q Treatments Start: 07/14/22 10:43 Freq: Status: Active Protocol: Document 07/14/22 11:15 [facility] (Rec: 07/20/22 17:47 [facility] [id number]) Therapeutic Exercises Supine Exercises pelvic floor quick contractions Reps/Minutes x 10 reps pelvic floor long holds Reps/Minutes 10 reps x 10 second hold time Self-Care/Home Management Treatment Education Patient Education Home Exercise Program Other Education pt was educated in the urge deference technique and bladder retraining, she was given a home program for endurance training and quick contractions for her pelvic floor. PT-OP-T Assessment and Plan Start: 07/14/22 10:43 Freq: Status: Active Protocol: Document 07/14/22 11:15 [facility] (Rec: 07/20/22 17:46 [facility] [id number]) Physical Therapy Assessment Rehab Potential Rehabilitation Potential Good Evaluation Complexity Number of Personal Factors/Comorbidities 0 Number of Body Systems Impaired 1-2 Clinical Presentation at Evaluation Stable Impairments Impairments Soft Tissue Mobility,Strength, Tone Other Impairments urinary incontinence Goals 3 Impairment Decreased pelvic floor endurance Short Term Goal (STG) Nohemi is able to sustain a pelvic floor contraction in supine x 10 seconds STG Duration 5 weeks Certified Nursing Attendant Goal (LTG) Nohemi is able to sustain a pelvic floor contraction in standing x 5 seconds LTG Duration 12 weeks 2 Impairment Decreased pelvic floor strength Certified Nursing Attendant Goal (LTG) Nohemi is able to increase her strength by 1 muscle grade for improved bladder support LTG Duration 12 weeks 1 Impairment urinary urge and stress incontinence Certified Nursing Attendant Goal (LTG) Nohemi reports a overall reduction in both urge and stress incontinence symptoms LTG Duration 12 weeks Assessment Summary Assessment Nohemi is a 72 year old female who presents to Physical Therapy with chief complaints of urinary urge and stress incontinence. She notes she has good days and bad days and she is not sure what is triggering her bladder when she experiences urgency and or leakage. With examination today Nohemi is able to facilitate all parts of the levator ani, however there is weakness and poor endurance holds. Treatment today included EMG biofeedback and endurance was assessed. Nohemi fatigues after a few repetitions. She was educated on a home program for pelvic floor endurance contractions as well as educated in the urge deference technique. Bladder irritants may any be a contributing factor for her. Nohemi is a good candidate for PT. Physical Therapy Plan Frequency and Duration Frequency of Treatment 2x/Week Duration of treatment (weeks) 12 Plan of Care Start Date 07/14/22 Plan of Care End Date 10/06/22 Therapeutic Interventions Therapeutic Interventions Home Exercise Program,Manual Therapy,Neuromuscular Re- education,Patient/Caregiver Education,Self-Care/Home Management,Therapeutic Exercises Modalities Biofeedback Next Visit Focus/Plan Next Note Type Treatment Note Next Visit Plan Work with EMG biofeedback on endurance training and pelvic floor strengthening
--- NOTE | 2022-07-21 14:04 | PT.OTN ---
Current Diagnoses Pelvic muscle wasting (07/21/22) Unspecified urinary incontinence (07/21/22) Physical Therapy Treatment Note PT-OP-A Visit Information Start: 07/14/22 10:43 Freq: Status: Active Protocol: Document 07/21/22 11:17 [facility] (Rec: 07/21/22 11:58 [facility] [id number]) Out-Patient Physical Therapy Visit Information Visit Information Visit Type Treatment Note Visit Start Time 11:15 Visit Stop Time 12:00 Total Visit Minutes 45 Visit Number 2 PT-OP-B Current Condition Start: 07/14/22 10:43 Freq: Status: Active Protocol: Document 07/14/22 11:15 [facility] (Rec: 07/14/22 11:50 [facility] [id number]) Current Condition History of Current Condition Onset Date worsening over time Current Complaints urinary stress and urge incontinence History of Current Condition pt reports urge as well as stress incontinence, some days are better than others. Drinking lots of water and has regular bowel movements. She has one cup of coffee maybe 2 and 2 martinins at night. She gets up to void at 2:30 am every morning and it doesn't disrupt her sleep. Urge incontinence happens within 5 minutes of getting to the bathroom. She is usually walking to the bathroom when she gets the urge to void. She will lose urine with sneezing hx of a ovarectomy in 1984. 84 vaginal delivery. She does water aerobics PT-OP-C Subjective Start: 07/14/22 10:43 Freq: Status: Active Protocol: Document 07/21/22 11:17 [facility] (Rec: 07/21/22 11:58 [facility] [id number]) OP-PT Subjective Patient Comments Patient Comments pt notes she was pretty successfull with her exercises and with the urge technique. She had one urge walking to the bathroom. She reports her bowel incontinence has to do with her dietary restrictions. PT-OP-I Pelvic Floor Start: 07/14/22 10:43 Freq: Status: Active Protocol: Document 07/14/22 11:15 [facility] (Rec: 07/20/22 17:46 [facility] [id number]) Pelvic Floor Assessment Urine Pelvic Floor Surgery No Urinary Symptoms Urge Sensation Leakage Size Medium Leakage Cause Urge Voiding Frequency 1 Pelvic Clock Pelvic Clock 12-3 Atrophy Pelvic Clock 3-6 Atrophy Pelvic Clock 6-9 Atrophy Pelvic Clock 9-12 Atrophy SEMG (uV) Baseline 3.0 10 Second Contraction 6.3 Contraction Ability Voluntary Contraction Weak Voluntary Relaxation Weak Manual Muscle Testing Left 3 Manual Muscle Testing Right 3 Manual Muscle Testing Anterior 2 Manual Muscle Testing Posterior 3 Muscle Endurance (Seconds) 3 Comments Pelvic Floor Comments lateral alvarez are guarded PT-OP-M Strength Start: 07/14/22 10:43 Freq: Status: Active Protocol: Document 07/14/22 11:15 [facility] (Rec: 07/20/22 18:07 [facility] [id number]) Trunk Strength Trunk Manual Muscle Testing Core Stabilization decreased core stabilization and ability to recruit the transverse abdominal muscle PT-OP-Q Treatments Start: 07/14/22 10:43 Freq: Status: Active Protocol: Document 07/21/22 11:17 [facility] (Rec: 07/21/22 11:58 [facility] [id number]) Therapeutic Exercises Supine Exercises balls squeeze with pelvic floor contractions Reps/Minutes x 10 pelvic floor quick contractions Reps/Minutes x 15 reps Comments 11.1 pelvic floor long holds Reps/Minutes 10 reps x 10 second hold time Comments 1.0 baseline 4.8 max of 15 uv Standing Exercises sit-stand with pelvic floor engagement Reps/Minutes x 10 reps Self-Care/Home Management Treatment Education Patient Education Body Mechanics,Home Exercise Program Other Education getting out of a recliner body mechanics, practicing sit to stand with pelvic floor engagement PT-OP-T Assessment and Plan Start: 07/14/22 10:43 Freq: Status: Active Protocol: Document 07/21/22 11:15 [facility] (Rec: 07/21/22 14:04 [facility] [id number]) Physical Therapy Assessment Assessment Summary Assessment Nohemi was shown ball squeezes today with pelvic floor contraction to assist with endurance training. She has improved intensity of contraction today as compared to last week however endurance of holds is difficult Physical Therapy Plan Frequency and Duration Frequency of Treatment 2x/Week Duration of treatment (weeks) 12 Plan of Care Start Date 07/14/22 Plan of Care End Date 10/06/22 Next Visit Focus/Plan Next Note Type Treatment Note Next Visit Plan Work with EMG biofeedback on endurance training and pelvic floor strengthening, review sit-stand exercise
--- NOTE | 2022-07-28 12:03 | PT.OTN ---
Current Diagnoses Pelvic muscle wasting (07/28/22) Unspecified urinary incontinence (07/28/22) Physical Therapy Treatment Note PT-OP-A Visit Information Start: 07/14/22 10:43 Freq: Status: Active Protocol: Document 07/28/22 11:15 [facility] (Rec: 07/28/22 12:03 [facility] [id number]) Out-Patient Physical Therapy Visit Information Visit Information Visit Type Treatment Note Visit Start Time 11:17 Visit Stop Time 12:00 Total Visit Minutes 43 Visit Number 3 PT-OP-B Current Condition Start: 07/14/22 10:43 Freq: Status: Active Protocol: Document 07/14/22 11:15 [facility] (Rec: 07/14/22 11:50 [facility] [id number]) Current Condition History of Current Condition Onset Date worsening over time Current Complaints urinary stress and urge incontinence History of Current Condition pt reports urge as well as stress incontinence, some days are better than others. Drinking lots of water and has regular bowel movements. She has one cup of coffee maybe 2 and 2 martinins at night. She gets up to void at 2:30 am every morning and it doesn't disrupt her sleep. Urge incontinence happens within 5 minutes of getting to the bathroom. She is usually walking to the bathroom when she gets the urge to void. She will lose urine with sneezing hx of a ovarectomy in 1984. 84 vaginal delivery. She does water aerobics PT-OP-C Subjective Start: 07/14/22 10:43 Freq: Status: Active Protocol: Document 07/28/22 11:15 [facility] (Rec: 07/28/22 12:03 [facility] [id number]) OP-PT Subjective Patient Comments Patient Comments pt notes she is doing pretty well with the urge ncy. PT-OP-I Pelvic Floor Start: 07/14/22 10:43 Freq: Status: Active Protocol: Document 07/14/22 11:15 [facility] (Rec: 07/20/22 17:46 [facility] [id number]) Pelvic Floor Assessment Urine Pelvic Floor Surgery No Urinary Symptoms Urge Sensation Leakage Size Medium Leakage Cause Urge Voiding Frequency 1 Pelvic Clock Pelvic Clock 12-3 Atrophy Pelvic Clock 3-6 Atrophy Pelvic Clock 6-9 Atrophy Pelvic Clock 9-12 Atrophy SEMG (uV) Baseline 3.0 10 Second Contraction 6.3 Contraction Ability Voluntary Contraction Weak Voluntary Relaxation Weak Manual Muscle Testing Left 3 Manual Muscle Testing Right 3 Manual Muscle Testing Anterior 2 Manual Muscle Testing Posterior 3 Muscle Endurance (Seconds) 3 Comments Pelvic Floor Comments lateral alvarez are guarded PT-OP-M Strength Start: 07/14/22 10:43 Freq: Status: Active Protocol: Document 07/14/22 11:15 [facility] (Rec: 07/20/22 18:07 [facility] [id number]) Trunk Strength Trunk Manual Muscle Testing Core Stabilization decreased core stabilization and ability to recruit the transverse abdominal muscle PT-OP-Q Treatments Start: 07/14/22 10:43 Freq: Status: Active Protocol: Document 07/28/22 11:15 [facility] (Rec: 07/28/22 12:03 [facility] [id number]) Therapeutic Exercises Supine Exercises hip roll outs with theraband Reps/Minutes 2 x 10 reps Comments pt shown in both sitting as well as supine for HEP pelvic floor quick contractions Reps/Minutes x 15 reps Comments 11.1 pelvic floor long holds Comments 8.6 uv average and max of 16 uv Standing Exercises sit-stand with pelvic floor engagement Reps/Minutes x 10 reps PT-OP-T Assessment and Plan Start: 07/14/22 10:43 Freq: Status: Active Protocol: Document 07/28/22 11:15 [facility] (Rec: 07/28/22 12:03 [facility] [id number]) Physical Therapy Assessment Assessment Summary Assessment Nohemi is doing better with her sit-stand and pelvic floor engagement. Her endurance was improved today on EMG biofeedback Physical Therapy Plan Frequency and Duration Frequency of Treatment 2x/Week Duration of treatment (weeks) 12 Plan of Care Start Date 07/14/22 Plan of Care End Date 10/06/22 Therapeutic Interventions Therapeutic Interventions Home Exercise Program,Manual Therapy,Neuromuscular Re- education,Patient/Caregiver Education,Self-Care/Home Management,Therapeutic Exercises Modalities Biofeedback Next Visit Focus/Plan Next Note Type Treatment Note Next Visit Plan Work with EMG biofeedback on endurance training and pelvic floor strengthening, review sit-stand exercise
--- NOTE | 2022-08-05 15:58 | PT.OTN ---
Current Diagnoses Pelvic muscle wasting (08/05/22) Unspecified urinary incontinence (08/05/22) Physical Therapy Treatment Note PT-OP-A Visit Information Start: 07/14/22 10:43 Freq: Status: Active Protocol: Document 08/05/22 15:18 [facility] (Rec: 08/05/22 15:58 [facility] [id number]) Out-Patient Physical Therapy Visit Information Visit Information Visit Type Treatment Note Visit Start Time 15:20 Visit Stop Time 16:00 Total Visit Minutes 40 Visit Number 4 PT-OP-B Current Condition Start: 07/14/22 10:43 Freq: Status: Active Protocol: Document 07/14/22 11:15 [facility] (Rec: 07/14/22 11:50 [facility] [id number]) Current Condition History of Current Condition Onset Date worsening over time Current Complaints urinary stress and urge incontinence History of Current Condition pt reports urge as well as stress incontinence, some days are better than others. Drinking lots of water and has regular bowel movements. She has one cup of coffee maybe 2 and 2 martinins at night. She gets up to void at 2:30 am every morning and it doesn't disrupt her sleep. Urge incontinence happens within 5 minutes of getting to the bathroom. She is usually walking to the bathroom when she gets the urge to void. She will lose urine with sneezing hx of a ovarectomy in 1984. 84 vaginal delivery. She does water aerobics PT-OP-C Subjective Start: 07/14/22 10:43 Freq: Status: Active Protocol: Document 08/05/22 15:18 [facility] (Rec: 08/05/22 15:58 [facility] [id number]) OP-PT Subjective Patient Comments Patient Comments Nohemi notes she is not feeling the urgency as much and starting to have more control. PT-OP-I Pelvic Floor Start: 07/14/22 10:43 Freq: Status: Active Protocol: Document 07/14/22 11:15 [facility] (Rec: 07/20/22 17:46 [facility] [id number]) Pelvic Floor Assessment Urine Pelvic Floor Surgery No Urinary Symptoms Urge Sensation Leakage Size Medium Leakage Cause Urge Voiding Frequency 1 Pelvic Clock Pelvic Clock 12-3 Atrophy Pelvic Clock 3-6 Atrophy Pelvic Clock 6-9 Atrophy Pelvic Clock 9-12 Atrophy SEMG (uV) Baseline 3.0 10 Second Contraction 6.3 Contraction Ability Voluntary Contraction Weak Voluntary Relaxation Weak Manual Muscle Testing Left 3 Manual Muscle Testing Right 3 Manual Muscle Testing Anterior 2 Manual Muscle Testing Posterior 3 Muscle Endurance (Seconds) 3 Comments Pelvic Floor Comments lateral alvarez are guarded PT-OP-M Strength Start: 07/14/22 10:43 Freq: Status: Active Protocol: Document 07/14/22 11:15 [facility] (Rec: 07/20/22 18:07 [facility] [id number]) Trunk Strength Trunk Manual Muscle Testing Core Stabilization decreased core stabilization and ability to recruit the transverse abdominal muscle PT-OP-Q Treatments Start: 07/14/22 10:43 Freq: Status: Active Protocol: Document 08/05/22 15:18 [facility] (Rec: 08/05/22 15:58 [facility] [id number]) Therapeutic Exercises Supine Exercises hip roll outs with theraband Reps/Minutes 2 x 10 reps Comments pt shown in both sitting as well as supine for HEP balls squeeze with pelvic floor contractions Reps/Minutes x 10 pelvic floor quick contractions Reps/Minutes x 15 reps Comments 11.1 pelvic floor long holds Reps/Minutes 10 reps x 10 second hold Comments average 10 and max of 15 Standing Exercises sit-stand with pelvic floor engagement Reps/Minutes x 10 reps PT-OP-T Assessment and Plan Start: 07/14/22 10:43 Freq: Status: Active Protocol: Document 08/05/22 15:18 [facility] (Rec: 08/05/22 15:58 [facility] [id number]) Physical Therapy Assessment Goals 3 Impairment Decreased pelvic floor endurance Short Term Goal (STG) Nohemi is able to sustain a pelvic floor contraction in supine x 10 seconds STG Duration 5 weeks Snf Goal (LTG) Nohemi is able to sustain a pelvic floor contraction in standing x 5 seconds LTG Duration 12 weeks 2 Impairment Decreased pelvic floor strength Snf Goal (LTG) Nohemi is able to increase her strength by 1 muscle grade for improved bladder support LTG Duration 12 weeks 1 Impairment urinary urge and stress incontinence Technician Support Engineer Goal (LTG) Nohemi reports a overall reduction in both urge and stress incontinence symptoms LTG Duration 12 weeks Assessment Summary Assessment Nohemi is doing better with endurance contractions and her average increased to 10 uv Physical Therapy Plan Next Visit Focus/Plan Next Note Type Treatment Note Next Visit Plan Work with EMG biofeedback on endurance training and pelvic floor strengthening, review sit-stand exercise
--- NOTE | 2022-08-11 11:33 | PT-OP ANOTE ---
Pt was called today as she missed her appointment. She notes she forgot. I informed her of hospital policy to Discharge after 2 now shows. She would like to come to her next appointment on 08/18/22 and was reminded of times for next visit
--- NOTE | 2022-08-18 13:55 | PT.OTN ---
Current Diagnoses Pelvic muscle wasting (08/18/22) Unspecified urinary incontinence (08/18/22) Physical Therapy Treatment Note PT-OP-A Visit Information Start: 07/14/22 10:43 Freq: Status: Active Protocol: Document 08/18/22 11:22 [facility] (Rec: 08/18/22 12:01 [facility] [id number]) Out-Patient Physical Therapy Visit Information Visit Information Visit Type Treatment Note Visit Start Time 11:20 Visit Stop Time 12:00 Total Visit Minutes 40 Visit Number 5 PT-OP-B Current Condition Start: 07/14/22 10:43 Freq: Status: Active Protocol: Document 07/14/22 11:15 [facility] (Rec: 07/14/22 11:50 [facility] [id number]) Current Condition History of Current Condition Onset Date worsening over time Current Complaints urinary stress and urge incontinence History of Current Condition pt reports urge as well as stress incontinence, some days are better than others. Drinking lots of water and has regular bowel movements. She has one cup of coffee maybe 2 and 2 martinins at night. She gets up to void at 2:30 am every morning and it doesn't disrupt her sleep. Urge incontinence happens within 5 minutes of getting to the bathroom. She is usually walking to the bathroom when she gets the urge to void. She will lose urine with sneezing hx of a ovarectomy in 1984. 84 vaginal delivery. She does water aerobics PT-OP-C Subjective Start: 07/14/22 10:43 Freq: Status: Active Protocol: Document 08/18/22 11:22 [facility] (Rec: 08/18/22 12:01 [facility] [id number]) OP-PT Subjective Patient Comments Patient Comments Esteban reports she has been under a great deal of stress as she thought she had a apartment to move into and she was misinformed. She had one episode of a urge with leakage this past week but has felt that she has been under a great deal of stress. She had TMJ symptoms as well PT-OP-I Pelvic Floor Start: 07/14/22 10:43 Freq: Status: Active Protocol: Document 07/14/22 11:15 [facility] (Rec: 07/20/22 17:46 [facility] [id number]) Pelvic Floor Assessment Urine Pelvic Floor Surgery No Urinary Symptoms Urge Sensation Leakage Size Medium Leakage Cause Urge Voiding Frequency 1 Pelvic Clock Pelvic Clock 12-3 Atrophy Pelvic Clock 3-6 Atrophy Pelvic Clock 6-9 Atrophy Pelvic Clock 9-12 Atrophy SEMG (uV) Baseline 3.0 10 Second Contraction 6.3 Contraction Ability Voluntary Contraction Weak Voluntary Relaxation Weak Manual Muscle Testing Left 3 Manual Muscle Testing Right 3 Manual Muscle Testing Anterior 2 Manual Muscle Testing Posterior 3 Muscle Endurance (Seconds) 3 Comments Pelvic Floor Comments lateral alvarez are guarded PT-OP-M Strength Start: 07/14/22 10:43 Freq: Status: Active Protocol: Document 07/14/22 11:15 [facility] (Rec: 07/20/22 18:07 [facility] [id number]) Trunk Strength Trunk Manual Muscle Testing Core Stabilization decreased core stabilization and ability to recruit the transverse abdominal muscle PT-OP-Q Treatments Start: 07/14/22 10:43 Freq: Status: Active Protocol: Document 08/18/22 11:22 [facility] (Rec: 08/18/22 12:01 [facility] [id number]) Therapeutic Exercises Supine Exercises pelvic floor templates for endurance and eccentric control Reps/Minutes x 5 min working on pelvic floor coordination and eccentric control hip roll outs with theraband Reps/Minutes 2 x 10 reps Comments pt tends to push out from left side only, need VC balls squeeze with pelvic floor contractions Reps/Minutes x 10 pelvic floor quick contractions Reps/Minutes x 15 reps Comments 7.8 uv max pelvic floor long holds Reps/Minutes 10 reps holding 10 seconds and resting 10 seconds Comments 5.8 max 9.0 uv PT-OP-T Assessment and Plan Start: 07/14/22 10:43 Freq: Status: Active Protocol: Document 08/18/22 11:20 [facility] (Rec: 08/18/22 13:55 [facility] [id number]) Physical Therapy Assessment Assessment Summary Assessment Esteban did not have the same endurance today that she did last visit. I did explain that stress can do a lot and it could be that she is having a off week due to the stress of trying to move. Physical Therapy Plan Frequency and Duration Frequency of Treatment 2x/Week Duration of treatment (weeks) 12 Plan of Care Start Date 07/14/22 Plan of Care End Date 10/06/22 Therapeutic Interventions Therapeutic Interventions Home Exercise Program,Manual Therapy,Neuromuscular Re- education,Patient/Caregiver Education,Self-Care/Home Management,Therapeutic Exercises Modalities Biofeedback Next Visit Focus/Plan Next Note Type Treatment Note Next Visit Plan Work with EMG biofeedback on endurance training and pelvic floor strengthening, review sit-stand exercise
--- NOTE | 2022-09-01 12:03 | PT.OTN ---
Current Diagnoses Pelvic muscle wasting (09/01/22) Unspecified urinary incontinence (09/01/22) Physical Therapy Treatment Note PT-OP-A Visit Information Start: 07/14/22 10:43 Freq: Status: Active Protocol: Document 09/01/22 11:20 [facility] (Rec: 09/01/22 12:03 [facility] [id number]) Out-Patient Physical Therapy Visit Information Visit Information Visit Type Treatment Note Visit Start Time 11:20 Visit Stop Time 12:00 Total Visit Minutes 40 Visit Number 6 PT-OP-B Current Condition Start: 07/14/22 10:43 Freq: Status: Active Protocol: Document 07/14/22 11:15 [facility] (Rec: 07/14/22 11:50 [facility] [id number]) Current Condition History of Current Condition Onset Date worsening over time Current Complaints urinary stress and urge incontinence History of Current Condition pt reports urge as well as stress incontinence, some days are better than others. Drinking lots of water and has regular bowel movements. She has one cup of coffee maybe 2 and 2 martinins at night. She gets up to void at 2:30 am every morning and it doesn't disrupt her sleep. Urge incontinence happens within 5 minutes of getting to the bathroom. She is usually walking to the bathroom when she gets the urge to void. She will lose urine with sneezing hx of a ovarectomy in 1984. 84 vaginal delivery. She does water aerobics PT-OP-C Subjective Start: 07/14/22 10:43 Freq: Status: Active Protocol: Document 09/01/22 11:20 [facility] (Rec: 09/01/22 12:03 [facility] [id number]) OP-PT Subjective Patient Comments Patient Comments last tuesday she had one of those trips to the bathroom where she couldn't control it but she hasn't had that problem. The other times when she had the urge she was able to hold it off. She has been more conscious about fully emptying her bladder PT-OP-I Pelvic Floor Start: 07/14/22 10:43 Freq: Status: Active Protocol: Document 07/14/22 11:15 [facility] (Rec: 07/20/22 17:46 [facility] [id number]) Pelvic Floor Assessment Urine Pelvic Floor Surgery No Urinary Symptoms Urge Sensation Leakage Size Medium Leakage Cause Urge Voiding Frequency 1 Pelvic Clock Pelvic Clock 12-3 Atrophy Pelvic Clock 3-6 Atrophy Pelvic Clock 6-9 Atrophy Pelvic Clock 9-12 Atrophy SEMG (uV) Baseline 3.0 10 Second Contraction 6.3 Contraction Ability Voluntary Contraction Weak Voluntary Relaxation Weak Manual Muscle Testing Left 3 Manual Muscle Testing Right 3 Manual Muscle Testing Anterior 2 Manual Muscle Testing Posterior 3 Muscle Endurance (Seconds) 3 Comments Pelvic Floor Comments lateral alvarez are guarded PT-OP-M Strength Start: 07/14/22 10:43 Freq: Status: Active Protocol: Document 07/14/22 11:15 [facility] (Rec: 07/20/22 18:07 [facility] [id number]) Trunk Strength Trunk Manual Muscle Testing Core Stabilization decreased core stabilization and ability to recruit the transverse abdominal muscle PT-OP-Q Treatments Start: 07/14/22 10:43 Freq: Status: Active Protocol: Document 09/01/22 11:20 [facility] (Rec: 09/01/22 12:03 [facility] [id number]) Therapeutic Exercises Supine Exercises bridges with ball squeeze Reps/Minutes x 10 reps pelvic floor modified squat stretch Reps/Minutes hold 1-2 min hip roll outs with theraband Reps/Minutes 2 x 10 reps Comments pt tends to push out from left side only, need VC balls squeeze with pelvic floor contractions Reps/Minutes x 10 pelvic floor quick contractions Reps/Minutes x 15 reps Comments 7.8 uv max pelvic floor long holds Reps/Minutes x 10 reps Standing Exercises standing squats Reps/Minutes x 20 reps sit-stand with pelvic floor engagement Reps/Minutes x 20 reps PT-OP-T Assessment and Plan Start: 07/14/22 10:43 Freq: Status: Active Protocol: Document 09/01/22 11:20 [facility] (Rec: 09/01/22 12:03 [facility] [id number]) Physical Therapy Assessment Goals 3 Impairment Decreased pelvic floor endurance Short Term Goal (STG) Nohemi is able to sustain a pelvic floor contraction in supine x 10 seconds STG Duration 5 weeks Automation Machine Operator Goal (LTG) Nohemi is able to sustain a pelvic floor contraction in standing x 5 seconds LTG Duration 12 weeks 2 Impairment Decreased pelvic floor strength Chcf Goal (LTG) Nohemi is able to increase her strength by 1 muscle grade for improved bladder support LTG Duration 12 weeks 1 Impairment urinary urge and stress incontinence Automation Machine Operator Goal (LTG) Nohemi reports a overall reduction in both urge and stress incontinence symptoms LTG Duration 12 weeks Assessment Summary Assessment Nohemi did not have her electrode with her today so exercises were done without emg biofeedback. I also started standing pelvic floor exercises for Nohemi as well today as she was having trouble fitting in all her exercises laying down Physical Therapy Plan Frequency and Duration Frequency of Treatment 2x/Week Duration of treatment (weeks) 12 Plan of Care Start Date 07/14/22 Plan of Care End Date 10/06/22 Therapeutic Interventions Therapeutic Interventions Home Exercise Program,Manual Therapy,Neuromuscular Re- education,Patient/Caregiver Education,Self-Care/Home Management,Therapeutic Exercises Modalities Biofeedback
--- NOTE | 2022-09-08 12:01 | PT.OTN ---
Current Diagnoses Pelvic muscle wasting (09/08/22) Unspecified urinary incontinence (09/08/22) Physical Therapy Treatment Note PT-OP-A Visit Information Start: 07/14/22 10:43 Freq: Status: Active Protocol: Document 09/08/22 11:20 [facility] (Rec: 09/08/22 12:01 [facility] [id number]) Out-Patient Physical Therapy Visit Information Visit Information Visit Type Treatment Note Visit Start Time 11:20 Visit Stop Time 12:00 Total Visit Minutes 40 Visit Number 7 PT-OP-B Current Condition Start: 07/14/22 10:43 Freq: Status: Active Protocol: Document 07/14/22 11:15 [facility] (Rec: 07/14/22 11:50 [facility] [id number]) Current Condition History of Current Condition Onset Date worsening over time Current Complaints urinary stress and urge incontinence History of Current Condition pt reports urge as well as stress incontinence, some days are better than others. Drinking lots of water and has regular bowel movements. She has one cup of coffee maybe 2 and 2 martinins at night. She gets up to void at 2:30 am every morning and it doesn't disrupt her sleep. Urge incontinence happens within 5 minutes of getting to the bathroom. She is usually walking to the bathroom when she gets the urge to void. She will lose urine with sneezing hx of a ovarectomy in 1984. 84 vaginal delivery. She does water aerobics PT-OP-C Subjective Start: 07/14/22 10:43 Freq: Status: Active Protocol: Document 09/08/22 11:20 [facility] (Rec: 09/08/22 12:01 [facility] [id number]) OP-PT Subjective Patient Comments Patient Comments pt notes she has had bowel trouble this week with really loose stool PT-OP-I Pelvic Floor Start: 07/14/22 10:43 Freq: Status: Active Protocol: Document 07/14/22 11:15 [facility] (Rec: 07/20/22 17:46 [facility] [id number]) Pelvic Floor Assessment Urine Pelvic Floor Surgery No Urinary Symptoms Urge Sensation Leakage Size Medium Leakage Cause Urge Voiding Frequency 1 Pelvic Clock Pelvic Clock 12-3 Atrophy Pelvic Clock 3-6 Atrophy Pelvic Clock 6-9 Atrophy Pelvic Clock 9-12 Atrophy SEMG (uV) Baseline 3.0 10 Second Contraction 6.3 Contraction Ability Voluntary Contraction Weak Voluntary Relaxation Weak Manual Muscle Testing Left 3 Manual Muscle Testing Right 3 Manual Muscle Testing Anterior 2 Manual Muscle Testing Posterior 3 Muscle Endurance (Seconds) 3 Comments Pelvic Floor Comments lateral alvarez are guarded PT-OP-M Strength Start: 07/14/22 10:43 Freq: Status: Active Protocol: Document 07/14/22 11:15 [facility] (Rec: 07/20/22 18:07 [facility] [id number]) Trunk Strength Trunk Manual Muscle Testing Core Stabilization decreased core stabilization and ability to recruit the transverse abdominal muscle PT-OP-Q Treatments Start: 07/14/22 10:43 Freq: Status: Active Protocol: Document 09/08/22 11:20 [facility] (Rec: 09/08/22 12:01 [facility] [id number]) Therapeutic Exercises Supine Exercises bridges with ball squeeze Reps/Minutes x 10 reps pelvic floor modified squat stretch Reps/Minutes hold 1-2 min pelvic floor templates for endurance and eccentric control Reps/Minutes x 5 min working on pelvic floor coordination and eccentric control hip roll outs with theraband Reps/Minutes 2 x 10 reps Comments pt tends to push out from left side only, need VC balls squeeze with pelvic floor contractions Reps/Minutes x 10 pelvic floor quick contractions Reps/Minutes x 15 reps Comments 8.9 uv max pelvic floor long holds Reps/Minutes x 10 reps Comments 2.0 uv resting tone max of 15 and average of 10 uv hold Standing Exercises standing squats Reps/Minutes x 20 reps sit-stand with pelvic floor engagement Reps/Minutes x 20 reps PT-OP-T Assessment and Plan Start: 07/14/22 10:43 Freq: Status: Active Protocol: Document 09/08/22 11:20 [facility] (Rec: 09/08/22 12:01 [facility] [id number]) Physical Therapy Assessment Goals 3 Impairment Decreased pelvic floor endurance Short Term Goal (STG) Nohemi is able to sustain a pelvic floor contraction in supine x 10 seconds GOAL MET STG Duration 5 weeks Retail Salesperson Goal (LTG) Nohemi is able to sustain a pelvic floor contraction in standing x 5 seconds LTG Duration 12 weeks 2 Impairment Decreased pelvic floor strength Snf Goal (LTG) Nohemi is able to increase her strength by 1 muscle grade for improved bladder support LTG Duration 12 weeks 1 Impairment urinary urge and stress incontinence Retail Salesperson Goal (LTG) Nohemi reports a overall reduction in both urge and stress incontinence symptoms Goal met and pt notes she is leaking a small amount of urine only one time per day. She is encouraged to continue working on her home exercise program. LTG Duration 12 weeks Assessment Summary Assessment able to work on EMG biofeedback today and her averagehas increased to 10 uv pelvic floor endurance also improved. She is feeling independent with her home program at this time and willl be discharged to a [facility] Physical Therapy Plan Therapeutic Interventions Therapeutic Interventions Home Exercise Program,Manual Therapy,Neuromuscular Re- education,Patient/Caregiver Education,Self-Care/Home Management,Therapeutic Exercises Modalities Biofeedback Discharge Physical Therapy Discharge Reasons No Longer Attending PT Discharge Comments pt has made good overall progress with pelvic floor strengthening. She is feeling independent with her home exercise program and ready to discharge PT
== END 2022-09-09 12:28 | disposition home or self-care (01) ==
LOC: PHYS 11:15
PROVIDERS: PCP Nurse Practitioner; Referring Provider Nurse Practitioner; Visit Provider Nurse Practitioner
DX: R32 Unspecified urinary incontinence (principal); N81.84 Pelvic muscle wasting
CPT/HCPCS: 97110; 97161; 97535

== ENCOUNTER → 2023-01-14 07:09 | Outpatient (CLI) | payer MEDICARE, OTHER, SELFPAY ==
[2023-01-14 08:09] LABS: Add Manual Diff / Slide Review NO; Basophils Absolute Auto 0 /uL (0-100); Basophils Percent Auto 0.2 % (0-2); Eosinophils Absolute Auto 0 /uL (0-450); Eosinophils Percent Auto 0.1 % (2-4); Hematocrit 40.1 % (36-46); Hemoglobin 13.6 g/dL (12.0-16.0); Lymphocytes Absolute Auto 900 /uL (1100-4500); Lymphocytes Percent Auto 26.1 % (25-40); Mean Corpuscular HGB Conc 33.9 % (30-36); Mean Corpuscular Hemoglobin 31.9 PG (26-34); Mean Corpuscular Volume 94.2 fL (80-100); Monocytes Absolute Auto 300 /uL (0-900); Monocytes Percent Auto 8.1 % (3-14); Neutrophils Absolute Auto 2200 /uL (1500-7000); Neutrophils Percent Auto 65.5 % (50-75); Platelet Count 148 X10^3/uL (150-400); Red Blood Cell Count 4.26 X10^6/uL (4.0-5.2); Red Cell Distribution Width 12.8 % (11.6-14.8); White Blood Cell Count 3.3 X10^3/uL (4.5-11.0)
[2023-01-14 08:42] LABS: Lithium 0.3 mmol/L (0.6-1.2)
[2023-01-14 08:49] LABS: Alanine Aminotransferase 32 IU/L (<35); Albumin 3.6 g/dL (3.5-5.0); Albumin Globulin Ratio 1.6 (1.0-2.8); Alkaline Phosphatase 68 U/L (38-126); Aspartate Aminotransferase 36 IU/L (14-36); BUN Creatinine Ratio 9.7 (6-22); Bilirubin Total 0.5 mg/dL (0.2-1.3); Blood Urea Nitrogen 7 mg/dL (7-17); Calcium 8.6 mg/dL (8.4-10.2); Carbon Dioxide 34 mmol/L (22-32); Chloride 101 mmol/L (98-107); Estimated Glomerular Filt Rate > 60 mL/min (>60); Globulin 2.2 g/dL (1.7-4.1); Glucose 84 mg/dL (80-110); HEMOLYSIS < 15 (0-50); Sodium 138 mmol/L (137-145); Total Protein 5.8 g/dL (6.3-8.2)
[2023-01-17 17:34] LABS: Lamotrigine Lamictal 6.1 ug/mL (2.0-20.0)
== END ==
PROVIDERS: Psychiatry & Neurology Psychiatry; PCP Nurse Practitioner; Referring Provider Nurse Practitioner; Visit Provider Nurse Practitioner
DX: R73.9 Hyperglycemia, unspecified (principal); F31.70 Bipolar disorder, currently in remission, most recent episode unspecified; Z79.899 Other long term (current) drug therapy
CPT/HCPCS: 36415; 80053; 80175; 80178; 85025

== ENCOUNTER → 2023-01-20 10:27 | Outpatient (CLI) | payer MEDICARE, OTHER, SELFPAY ==
[2023-01-22 14:11] LABS: C difficie Toxins A and B, EIA Negative (Negative)
== END ==
PROVIDERS: PCP Nurse Practitioner; Referring Provider Nurse Practitioner; Visit Provider Nurse Practitioner
DX: R19.7 Diarrhea, unspecified (principal)
CPT/HCPCS: 87045; 87177; 87324; 87899

== ENCOUNTER → 2023-09-21 07:30 | Outpatient (CLI) | payer MEDICARE, OTHER, SELFPAY ==
[2023-09-21 08:11] LABS: Add Manual Diff / Slide Review NO; Basophils Absolute Auto 0 /uL (0-100); Basophils Percent Auto 0.5 % (0-2); Eosinophils Absolute Auto 0 /uL (0-450); Eosinophils Percent Auto 0.1 % (2-4); Hematocrit 41.2 % (36-46); Hemoglobin 13.7 g/dL (12.0-16.0); Lymphocytes Absolute Auto 1000 /uL (1100-4500); Lymphocytes Percent Auto 35.7 % (25-40); Mean Corpuscular HGB Conc 33.3 % (30-36); Mean Corpuscular Hemoglobin 32.1 PG (26-34); Mean Corpuscular Volume 96.5 fL (80-100); Monocytes Absolute Auto 200 /uL (0-900); Monocytes Percent Auto 8.5 % (3-14); Neutrophils Absolute Auto 1600 /uL (1500-7000); Neutrophils Percent Auto 55.2 % (50-75); Platelet Count 141 X10^3/uL (150-400); Red Blood Cell Count 4.27 X10^6/uL (4.0-5.2); Red Cell Distribution Width 12.2 % (11.6-14.8); White Blood Cell Count 2.9 X10^3/uL (4.5-11.0)
[2023-09-21 08:16] LABS: Hemoglobin A1C% w Est Avg Glu 4.7 % (4.0-6.0)
[2023-09-21 08:42] LABS: Lithium 0.3 mmol/L (0.6-1.2)
[2023-09-21 08:44] LABS: Alanine Aminotransferase 24 IU/L (<35); Albumin 3.7 g/dL (3.5-5.0); Albumin Globulin Ratio 1.5 (1.0-2.8); Alkaline Phosphatase 86 U/L (38-126); Aspartate Aminotransferase 26 IU/L (14-36); BUN Creatinine Ratio 15.5 (6-22); Bilirubin Total 0.6 mg/dL (0.2-1.3); Blood Urea Nitrogen 11 mg/dL (7-17); Calcium 9.3 mg/dL (8.4-10.2); Carbon Dioxide 33 mmol/L (22-32); Chloride 107 mmol/L (98-107); Cholesterol 191 mg/dL (140-199); Estimated Glomerular Filt Rate > 60 mL/min (>60); Globulin 2.5 g/dL (1.7-4.1); Glucose 95 mg/dL (80-110); HDL Cholesterol 81 mg/dL (40-60); HEMOLYSIS < 15 (0-50); LDL Cholesterol Calculated 88 mg/dL (<100); Potassium 3.9 mmol/L (3.4-5.1); Sodium 143 mmol/L (137-145); Total Protein 6.2 g/dL (6.3-8.2); Triglycerides 110 mg/dL (35-150)
[2023-09-21 09:11] LABS: TSH w/ Reflex to FT4 2.68 uIU/mL (0.47-4.68)
[2023-09-26 03:08] LABS: Lamotrigine Lamictal 6.7 ug/mL (2.0-20.0)
== END ==
PROVIDERS: PCP Nurse Practitioner; Referring Provider Psychiatry & Neurology Psychiatry; Visit Provider Psychiatry & Neurology Psychiatry
DX: Z79.899 Other long term (current) drug therapy (principal); F31.70 Bipolar disorder, currently in remission, most recent episode unspecified
CPT/HCPCS: 36415; 80053; 80061; 80175; 80178; 83036; 84443; 85025

== ENCOUNTER → 2023-11-03 14:50 | Outpatient (CLI) | payer MEDICARE, OTHER, SELFPAY ==
--- NOTE | 2023-11-03 14:54 | DI.MG.S_ITS ---
BILATERAL DIGITAL SCREENING MAMMOGRAM 3D/2D WITH CAD: 11/03/2023 CLINICAL: Routine screening. Comparison is made to exams dated: 07/28/2022 mammogram - [facility], 07/14/2021 mammogram, and 06/16/2021 mammogram - outside location. Both breasts are heterogeneously dense, which may obscure small masses (category c / 51-75% glandular tissue). Current study was also evaluated with a Computer Aided Detection (CAD) system. No significant masses, calcifications, or other findings are seen in either breast. There has been no significant interval change. IMPRESSION: NEGATIVE There is no mammographic evidence of malignancy. A 1 year screening mammogram is recommended. Based on the Tyrer Cuzick model (a risk assessment model) the patient's lifetime risk is 8.4% and her 10 year risk is 7.6%. According to the ACR, ACS, and NCCN guidelines, an annual breast MRI exam along with mammogram is recommended if the patient's lifetime risk is 20% or greater. This exam was interpreted at Station ID: [id number]. NOTE: For mammograms, a report in lay terms will be sent to the patient. Approximately 15% of breast malignancies will not be visualized mammographically. In the management of a palpable breast mass, a negative mammogram must not discourage biopsy of a clinically suspicious lesion. Electronically Signed By: Darlene paz/dwayne:11/04/2023 14:09:22 letter sent: Normal Exam ACR BI-RADS Category 1: Negative [id number]
== END ==
PROVIDERS: PCP Nurse Practitioner; Referring Provider Nurse Practitioner; Visit Provider Nurse Practitioner
DX: Z12.31 Encounter for screening mammogram for malignant neoplasm of breast (principal); R92.333 Mammographic heterogeneous density, bilateral breasts
CPT/HCPCS: 77063; 77067

== ENCOUNTER → 2024-04-20 15:28 | Outpatient (CLI) | payer MEDICARE, OTHER, SELFPAY ==
[2024-04-20 18:21] LABS: Add Manual Diff / Slide Review NO; Basophils Absolute Auto 0 /uL (0-100); Basophils Percent Auto 0.7 % (0-2); Eosinophils Absolute Auto 0 /uL (0-450); Eosinophils Percent Auto 0.3 % (2-4); Hematocrit 42.2 % (36-46); Hemoglobin 14.2 g/dL (12.0-16.0); Lymphocytes Absolute Auto 1400 /uL (1100-4500); Lymphocytes Percent Auto 27.3 % (25-40); Mean Corpuscular HGB Conc 33.7 % (30-36); Mean Corpuscular Hemoglobin 31.6 PG (26-34); Mean Corpuscular Volume 93.8 fL (80-100); Monocytes Absolute Auto 400 /uL (0-900); Monocytes Percent Auto 7.7 % (3-14); Neutrophils Absolute Auto 3200 /uL (1500-7000); Platelet Count 194 X10^3/uL (150-400); Red Cell Distribution Width 12.9 % (11.6-14.8)
[2024-04-20 19:03] LABS: Lithium 0.2 mmol/L (0.6-1.2)
[2024-04-20 19:13] LABS: Alanine Aminotransferase 34 IU/L (<35); Albumin 3.8 g/dL (3.5-5.0); Albumin Globulin Ratio 1.6 (1.0-2.8); Alkaline Phosphatase 70 U/L (38-126); Aspartate Aminotransferase 37 IU/L (14-36); BUN Creatinine Ratio 17.6 (6-22); Bilirubin Total 0.4 mg/dL (0.2-1.3); Blood Urea Nitrogen 12 mg/dL (7-17); Calcium 9.4 mg/dL (8.4-10.2); Carbon Dioxide 30 mmol/L (22-32); Chloride 104 mmol/L (98-107); Estimated Glomerular Filt Rate > 60 mL/min (>60); Globulin 2.4 g/dL (1.7-4.1); Glucose 83 mg/dL (80-110); HEMOLYSIS < 15 (0-50); Potassium 4.5 mmol/L (3.4-5.1); Sodium 138 mmol/L (137-145); Total Protein 6.2 g/dL (6.3-8.2)
[2024-04-25 12:36] LABS: Lamotrigine Lamictal 3.9 ug/mL (2.0-20.0)
== END ==
PROVIDERS: PCP Family Medicine; Referring Provider Family Medicine; Visit Provider Family Medicine
DX: G31.84 Mild cognitive impairment of uncertain or unknown etiology (principal); F31.70 Bipolar disorder, currently in remission, most recent episode unspecified; E78.5 Hyperlipidemia, unspecified
CPT/HCPCS: 80053; 80175; 80178; 85025

== ENCOUNTER → 2024-12-28 09:17 | Outpatient (CLI) | payer MEDICARE, OTHER, SELFPAY ==
[2024-12-28 09:37] LABS: Add Manual Diff / Slide Review NO; Basophils Absolute Auto 0 /uL (0-100); Basophils Percent Auto 1.1 % (0-2); Eosinophils Absolute Auto 0 /uL (0-450); Eosinophils Percent Auto 0.1 % (2-4); Hematocrit 41.4 % (36-46); Hemoglobin 13.7 g/dL (12.0-16.0); Lymphocytes Absolute Auto 700 /uL (1100-4500); Lymphocytes Percent Auto 26.3 % (25-40); Mean Corpuscular HGB Conc 33.1 % (30-36); Mean Corpuscular Hemoglobin 31.6 PG (26-34); Mean Corpuscular Volume 95.5 fL (80-100); Monocytes Absolute Auto 200 /uL (0-900); Monocytes Percent Auto 7.4 % (3-14); Neutrophils Absolute Auto 1800 /uL (1500-7000); Neutrophils Percent Auto 65.1 % (50-75); Platelet Count 157 X10^3/uL (150-400); Red Blood Cell Count 4.33 X10^6/uL (4.0-5.2); Red Cell Distribution Width 12.8 % (11.6-14.8); White Blood Cell Count 2.8 X10^3/uL (4.5-11.0)
[2024-12-28 09:51] LABS: Lithium 0.3 mmol/L (0.6-1.2)
[2024-12-28 09:57] LABS: Alanine Aminotransferase 32 IU/L (<35); Albumin 3.8 g/dL (3.5-5.0); Albumin Globulin Ratio 2.1 (1.0-2.8); Alkaline Phosphatase 59 U/L (38-126); Aspartate Aminotransferase 32 IU/L (14-36); Bilirubin Total 0.5 mg/dL (0.2-1.3); Blood Urea Nitrogen 9 mg/dL (7-17); Calcium 8.9 mg/dL (8.4-10.2); Carbon Dioxide 28 mmol/L (22-32); Chloride 105 mmol/L (98-107); Estimated Glomerular Filt Rate > 60 mL/min (>60); Globulin 1.8 g/dL (1.7-4.1); Glucose 88 mg/dL (70-99); HEMOLYSIS < 15 (0-50); Potassium 3.9 mmol/L (3.4-5.1); Sodium 139 mmol/L (137-145); Total Protein 5.6 g/dL (6.3-8.2)
[2024-12-28 10:25] LABS: TSH w/ Reflex to FT4 1.66 uIU/mL (0.47-4.68)
== END ==
PROVIDERS: PCP Family Medicine; Referring Provider Family Medicine; Visit Provider Family Medicine
DX: Z00.00 Encounter for general adult medical examination without abnormal findings (principal); G30.9 Alzheimer's disease, unspecified; F02.80 Dementia in other diseases classified elsewhere, unspecified severity, without behavioral disturbance, psychotic disturbance, mood disturbance, and anxiety; F31.70 Bipolar disorder, currently in remission, most recent episode unspecified; E78.2 Mixed hyperlipidemia
CPT/HCPCS: 36415; 80053; 80178; 84443; 85025

== ENCOUNTER → 2025-04-02 11:05 | Outpatient (CLI) | payer MEDICARE, OTHER, SELFPAY ==
[2025-04-06 12:09] LABS: Calprotectin, Stool < 5 ug/g (0-120)
== END ==
PROVIDERS: PCP Family Medicine; Referring Provider Internal Medicine Gastroenterology; Visit Provider Internal Medicine Gastroenterology
DX: K52.9 Noninfective gastroenteritis and colitis, unspecified (principal)
CPT/HCPCS: 83993

== ENCOUNTER 2025-05-13 08:02 | Day surgery (SDC) | payer MEDICARE, OTHER, SELFPAY ==
--- NOTE | 2025-05-13 | PATH_ITS ---
[facility] Accession Number: [id number] No. of containers..01 Tissue . 01 Material submitted: . colon - COLON, RANDOM . 01 Clinical history: . R/O MICROSCOPIC COLITIS . 01 Diagnosis: COLON, RANDOM: Colonic mucosa with no diagnostic alterations. No active inflammation and no evidence of microscopic colitis. [facility] 05/23/2025 1413 Local . 01 Electronically signed: . Richard Brock MD, Pathologist NPI- [id number] . 01 Gross description: . Received one formalin-filled container, labeled with the patient's name and random colon. The specimen consists of multiple fragments of ghotra soft tissue which range in size from less than 0.1 cm to 0.3 x 0.3 x 0.3 cm. All fragments are totally submitted in one cassette. ([id number]) /[facility] 05/23/2025 1413 Local . 01 Pathologist provided ICD-10: K52.9 . 01 CPT . 316776 Specimen Comment: A courtesy copy of this report has been sent to [phone] Performed at: [address] [id number] MD Richard Brock MD Phone: [phone]
--- NOTE | 2025-05-13 08:29 | PM.HP.IH.1 ---
History of Present Illness History of Present Illness Date Patient Seen: 05/13/25 Chief complaint: Colonoscopy Narrative: History of diarrhea [facility] Medical History Chronic diarrhea Medicare annual wellness visit, subsequent Bradycardia Mild alcohol use disorder, in early remission History of alcohol use disorder Dementia Mild cognitive impairment Vasovagal syncope Amnestic MCI (mild cognitive impairment with memory loss) (~2016) Alcohol use Elevated LFTs [place] use Vision problem Hayfever (~1971) Mumps (~1956) Measles (~1955) Chickenpox (~1958) Anemia (~1958) Recurrent sinusitis (~1988) Cataract (~2012) Stress incontinence Hypertension (~1999) Hyperlipidemia PMS (premenstrual syndrome) Suicide attempt (01/09/15) Depression (~1962) Anxiety (~1962) Osteoarthritis (~2013) Atrophic vaginitis HSV (herpes simplex virus) infection (~1975) Chlamydia (~1974) Abnormal Pap smear of cervix Helicobacter pylori (H. pylori) Gastroesophageal reflux disease (01/30/15) Hyperlipidemia (08/15/13) Genital herpes simplex (08/15/13) Cholelithiasis and cholecystitis without obstruction Surgical History History of blepharoplasty (~2016) History of meniscal tear (~1989) Anesthesia Status post laparoscopic cholecystectomy (07/14/17) Status post endometrial ablation History of elective History of elective History of lumpectomy Status post breast biopsy History of cataract removal with insertion of prosthetic lens History of bilateral salpingo-oophorectomy (BSO) Status post arthroscopy Family History Father Hypertension Hyperlipidemia Myocardial infarct Heart disease Mother High cholesterol Meds Home Medications and Allergies Home Medications ?Medication ?Instructions ?Recorded ?Confirmed ?Type MULTIVITAMIN (Multiple Vitamins 1 tab PO Q DAY ##0 03/03/12 05/13/25 History Daily) memantine 10 mg tablet 10 mg PO BID 05/28/20 05/13/25 History Saccharomyces boulardii 10 billion 10,000 mmu cells PO DAILY 01/13/23 03/14/25 History cell capsule [calcium/magnesium] See Rx Instructions PO QDAY ##0 08/02/23 05/13/25 History B Complex 100 ER 1 cap PO .QD 02/14/24 05/13/25 History omega-3 fatty acids [Fish Oil] 1 cap PO .QD 02/14/24 03/14/25 History zinc 50 mg PO .QD 02/14/24 03/14/25 History atorvastatin 10 mg tablet 10 mg PO QPM #90 tabs 07/17/24 05/13/25 Rx fluoxetine 40 mg capsule 40 mg PO DAILY #90 caps 01/14/25 05/13/25 Rx olanzapine 10 mg tablet See Rx Instructions .Route 01/14/25 05/13/25 Rx .COMPLEX #135 tabs propranolol 20 mg tablet See Rx Instructions .Route .COMPLEX 01/21/25 05/13/25 History loperamide 2 mg capsule 2 mg PO DAILY PRN loose stool #30 02/14/25 05/13/25 Rx caps lamotrigine 200 mg tablet 200 mg PO QDAY 90 days #90 tabs 04/08/25 05/13/25 Rx lithium carbonate 300 mg 300 mg PO DAILY #90 tabs 04/08/25 05/13/25 Rx tablet,extended release lorazepam 0.5 mg tablet 0.5 mg PO DAILY PRN anxiety #30 05/06/25 05/13/25 Rx tabs Allergies Allergy/AdvReac Type Severity Reaction Status Date / Time morphine (MORPHINE) Allergy Severe Itch Verified 03/14/25 13:33 venlafaxine (VENLAFAXINE) Allergy Severe Upset GI Verified 03/14/25 13:33 [place] Allergy Unknown Rash Uncoded 03/14/25 13:33 Exam Narrative Exam Narrative: Or oropharynx free of lesions Chest clear to auscultation percussion Cardiac exam reveals no S3 or murmur Assessment & Plan Assessment & Plan narrative: History of unresolved diarrhea need for colonoscopy. In addition need screening. Risks, benefits, alternatives have been explained. Time-Based Coding :: [TOTAL MINUTES] spent with patient and on the chart (including review of chart, obtaining history, exam, reviewing outside data, placing orders, documenting exam and treatment plan, and counseling patient) on [DATE]. PROFEE Makeup Instructor Document charge(s): No
[2025-05-13 08:31] VITALS: BP 113/69; PULSE 76; RESP 16; TEMP 36.3; O2SAT 98
--- NOTE | 2025-05-13 08:31 | PM.OP.COLON ---
Operative Date/Time/Diagnoses Date of procedure: 05/13/25 Time of procedure: 09:28 Pre-op diagnosis: See indication and findings Post-op diagnosis: same Procedure & Clinicians Study performed: Colonoscopy Same procedure(s) as scheduled: Yes Indications: Diarrhea need for colorectal cancer screening Surgeon: Alfa Yates Anesthesia Type: Other Procedure Notes Procedure in detail: After informed consent was obtained the patient was placed in left lateral decubitus position. The video colonoscope was introduced the rectum slowly advanced cecum. Preparation was good. On slow withdrawal mucosa was carefully examined. On the scope was removed. The patient tolerated procedure well. Blood loss none Complications none Sedation mac Findings 1. Normal colonoscopy to cecum though the prep was only fair in some parts. Random biopsies were taken to rule out microscopic colitis We will follow-up on biopsies and the patient will need follow-up colonoscopy in 3-5 years due to prep issues. Estimated Blood Loss: 0 Complications: none
[2025-05-13] MEDS: LACTATED RINGERS 1,000 ML 42 ML IV (08:57)
[2025-05-13 09:31] VITALS: BP 78/42; PULSE 50; RESP 12; TEMP 36.3; O2SAT 94
[2025-05-13 09:37] VITALS: BP 108/57; PULSE 50; RESP 14; TEMP 36.3; O2SAT 96
[2025-05-13 09:48] VITALS: BP 116/61; PULSE 51; RESP 14; TEMP 36.3; O2SAT 97
[2025-05-13 09:53] VITALS: BP 115/68; PULSE 55; RESP 16; TEMP 36.3; O2SAT 97
== END 2025-05-13 10:15 | disposition home or self-care (01) ==
PROVIDERS: PCP Family Medicine; Referring Provider Internal Medicine Gastroenterology; Visit Provider Internal Medicine Gastroenterology
PROC: 0DJD8ZZ Inspection of Lower Intestinal Tract, Via Natural or Artificial Opening Endoscopic (ICD-10-PCS; CPT 45378; principal; 2025-05-13 09:00)
DX: R19.7 Diarrhea, unspecified (principal); I10 Essential (primary) hypertension; E78.5 Hyperlipidemia, unspecified; F03.90 Unspecified dementia, unspecified severity, without behavioral disturbance, psychotic disturbance, mood disturbance, and anxiety
CPT/HCPCS: 45380; J2704; J7120